=== PATIENT | male | born 1935 | race Caucasian/White ===

== ENCOUNTER 2017-01-28 02:59 | Inpatient (IN) ==
[2017-01-28] MEDS ORDERED: FUROSEMIDE 100 MG/10 ML VIAL IV STA (03:47)
[2017-01-28] MEDS ORDERED: cefTRIAXone 1,000 MG in SODIUM CHLORIDE 0.9% 100 ML IV STA (03:47)
[2017-01-28] MEDS ORDERED: methylPREDNISolone SOD SUC 125 MG/2 ML VIAL IV STA (03:47)
--- NOTE | 2017-01-28 03:56 | Emergency Department Note ---
ICastillo Gwan, am scribing for, and in the presence of, Fletcher Shields MD 03 :54. Alyson Matute Charles R, MD, personally performed the services described in this documentation, ascribed by Jairon Chong in my presence, and it is both accurate and complete 356 . Arrival - Arrival Chief Complaint: Shortness of Breath Stated Complaint: sob ED Nursing Triage Note: Pt ambulatory to triage with c/o sob that started a week ago, but worse tonight. Mode of Arrival: Ambulatory Limitations: No Limitations Source: Patient, Significant other, Old Records Reviewed, RN Notes Reviewed Time Seen by Provider: 01/28/17 03:19 - History of Present Illness HPI Narrative: Patient is a 81 y/o white male who presents to the ED with a c/o SOB with an onset 1 week ago. Pt has a PMHx of COPD and TIA. Patient denies any chest pain, being on any home oxygen or any hx of heart failure. confirmed that pt has a SHx of smoking cigarettes. During exam, stated that pt has also had tingling/numbness in bilateral feet. was then educated on the detriment of smoking cigarettes and how, with the pt's PMHx, this can cause damage to blood vessels and destroy function of lower extremities. Patient did not appear to be in respiratory distress while in ED. Onset (ago): week(s) Consistency: constant Severity: moderate Allergies/Adverse Reactions: Allergies Allergy/AdvReac Type Severity Reaction Status Date / Time No Known Allergies Allergy Unverified 01/28/17 03:14 Home Medications: Home Medications Medication Instructions Recorded Confirmed Type Albuterol Sulfate [Proair HFA] 2 puff INH Q4H PRN 01/28/17 01/28/17 History Digoxin Tab [Lanoxin Tab] 0.125 mg PO DAILY 01/28/17 01/28/17 History Pentoxifylline [TRENtal] 400 mg PO TID 01/28/17 01/28/17 History Simvastatin [Zocor] 40 mg PO DAILY 01/28/17 01/28/17 History Warfarin [Coumadin] 5 mg PO DAILY 01/28/17 01/28/17 History dilTIAZem HCl [Diltiazem HCl] 120 mg PO 01/28/17 History Review of System - Review of System 12 point system: reviewed and no additional remarkable complaints except as stated - Review of System Constitutional: Absent: chills, fever Eyes: Absent: discharge Head/Ears/Nose/Throat: Absent: earache Respiratory: Present: as per HPI, other (shortness of breathe ). Absent: cough Cardiovascular: Absent: chest pain Gastrointestinal: Absent: abdominal pain, nausea, vomiting, diarrhea Genitourinary male: Absent: urgency, dysuria Musculoskeletal: Absent: arm pain, back pain, leg pain, neck pain Medical,Surgical,& Family Hx - Medical History Neurology: History of: TIA - Surgical History Reproductive Surgeries: Surgical HX of;: Prostate Surgery (Prostate CA 2010) - Social History Smoking Status: Current every day smoker Frequency of Alcohol Use: None Type of Drug Use: None Exam Vital Signs: Vital Signs Temperature 97.1 F L 01/28/17 03:20 Pulse Rate 73 01/28/17 03:20 Respiratory Rate 18 01/28/17 04:56 Blood Pressure 114/39 01/28/17 03:20 O2 Sat by Pulse Oximetry 91 L 01/28/17 03:01 - General General appearance: alert, in no apparent distress - Head Head exam: Present: atraumatic, normocephalic - Eye Eye exam: Present: normal appearance, PERRL, EOMI - ENT ENT exam: Present: normal oropharynx, mucous membranes moist, TM's normal bilaterally, normal external ear exam - Chest Chest inspection: Present: symmetric chest wall rise, other (Barrel chest). Absent: tenderness - Respiratory Respiratory exam: Present: rales, wheezes (expiratory wheezing bilaterally), other (When pt has oxygen in place, he becomes asymptomatic) - Cardiovascular Cardiovascular exam: Present: murmur (2/6 systolic injection murmur) - Abdominal Exam Abdominal exam: Present: soft, normal bowel sounds. Absent: distention, tenderness - Rectal Exam Rectal exam: Present: heme (-) stool - Extremities Exam Extremities exam: Present: full ROM, other (+2 edema bilateral LE) - Back Exam Back exam: Present: full ROM. Absent: tenderness - Neurological Exam Neurological exam: Present: alert, oriented X3, CN II-XII intact. Absent: motor sensory deficit - Psychiatric Psychiatric exam: Present: normal affect, normal mood - Skin Skin exam: Present: warm, dry, intact, normal color Course - Consultations Consultation #1: Dr. Fay will admit for Dr. Berry Time: 05:11 Results - Labs CBC & BMP: 01/28/17 03:43 01/28/17 03:43 Lab Results: I have reviewed the patients labs Labs: Laboratory Tests 01/28/17 03:43 WBC 13.9 H RBC 3.17 L Hgb 7.4 L Hct 25.0 L MCV 78.9 L MCH 23 L MCHC 29.6 L RDW 18.7 H Plt Count 229 Neut % (Auto) 77.1 H Lymph % (Auto) 12.4 L Neut # (Auto) 10.7 H [place] # (Auto) 1.3 H Laboratory Tests 01/28/17 01/28/17 01/28/17 03:43 03:43 04:20 INR 5.6 H* PT Patient/Control Mix 66.2 ABG pH 7.454 H ABG pCO2 21.5 L ABG pO2 61.5 L ABG HCO3 17.8 L ABG Total CO2 14.3 L ABG O2 Saturation 91.7 L ABG Base Excess -7.9 L FiO2 28.00 Sodium 138 Potassium 4.8 Chloride 110 H Carbon Dioxide 18 L BUN 28 H Creatinine 1.50 H Glucose 144 H Calcium 8.2 L AST 53 H Troponin I 0.073 H Albumin 3.2 L Albumin/Globulin Ratio 1.0 L Critical Care Time Critical Care Time: Yes Total Critical Care Time: 60 Disposition Clinical Impression: Congestive heart failure, Acute exacerbation of chronic obstructive airways disease, Community acquired pneumonia, Coumadin toxicity, Acute anemia Case discussed with: patient, patient's family Disposition: Still a Patient Condition: Guarded Time of Disposition: 05:12
[2017-01-28] MEDS ORDERED: ALBUTEROL 2.5 MG/3 ML NEB RESP TX SCH (04:00)
[2017-01-28 04:01] LABS: Basophils % 0.1 % (0.0-0.8); Eosinophils # 0.1 10*3/uL (0.0-0.87); Eosinophils % 0.5 % (0.00-10.9); Hemoglobin 7.4 GM/DL (14.0-18.0); Immature Granulocytes % 0.8 %; Immature Granulocytes Absolute 0.11 #; Lymphocytes # 1.7 10*3/uL (1.4-4.0); Lymphocytes % 12.4 % (21.2-54.2); Mean Corpuscular HGB Conc 29.6 GM/DL (32-36); Mean Corpuscular Hemoglobin 23 PG (27-34); Mean Corpuscular Volume 78.9 FL (87-102); Mean Platelet Volume 11.1 FL (9.6-12.0); Monocytes # 1.3 10*3/uL (0.11-0.8); Monocytes % 9.1 % (1.7-12.7); NRBC # 0.02 10*3/uL; Neutrophils # 10.7 10*3/uL (1.4-7.4); Neutrophils % 77.1 % (38.7-73.9); Platelet Count 229 T/CUMM (130-400); Red Blood Count 3.17 MC/CUMM (3.8-5.5); Red Cell Distribution Width 18.7 % (9.3-17.3); White Blood Count 13.9 T/CUMM (4-12)
[2017-01-28] MEDS ORDERED: FUROSEMIDE 40 MG/4 ML VIAL IV STA (04:07)
[2017-01-28] MEDS ORDERED: methylPREDNISolone SOD SUC 125 MG/2 ML VIAL ONE (04:11)
[2017-01-28] MEDS ORDERED: FUROSEMIDE 40 MG/4 ML VIAL ONE (04:11)
[2017-01-28] MEDS ORDERED: cefTRIAXone 1,000 MG VIAL ONE (04:11)
[2017-01-28] MEDS ORDERED: FUROSEMIDE 20 MG/2 ML VIAL ONE (04:11)
[2017-01-28 04:32] LABS: ABG Base Excess -7.9 MMOL/L (-2.5-2.5); ABG HCO3 17.8 MMOL/L (20-26); ABG Oxygen Saturation 91.7 % (95-100); ABG PCO2 21.5 MM HG (35-48); ABG PH 7.454 (7.35-7.45); ABG PO2 61.5 MM HG (80-95); ABG TCO2 14.3 MMOL/L (23-27); Allen Test Positive
[2017-01-28 04:37] LABS: INR 5.6; PT Patient Result 66.2 SECS
[2017-01-28 04:51] LABS: Albumin 3.2 G/DL (3.4-5.0); Bilirubin,Total 0.4 MG/DL (0.2-1.0); Calcium 8.2 MG/DL (8.5-10.1); Magnesium 2.3 MG/DL (1.8-2.4); Osmolality,Calculated 283.7 MOS/KG (273-304); Potassium 4.8 MMOL/L (3.5-5.1); Total Protein 6.4 G/DL (6.4-8.3)
[2017-01-28 04:52] LABS: Troponin I Only 0.073 NG/ML (0.00-0.045)
--- NOTE | 2017-01-28 05:56 | EKG Report ---
Stationary ECG Study [facility] ER Test Date: 01/28/2017 3:19:13 AM Pat Name: DAVID LOWERY Department: Room: 288 Gender: M Erp Project Manager: Boaz : 1935 Requested by: Fletcher Frost Order Number: [id number] Reading MD: PERFECTO BLANC Intervals [place] Rate: 72 P: 999 MS: 0 QRS: 94 QRSD: 86 T: 4 QT: 390 QTc: 415 Interpretive Statements Sinus bradycardia with junctional rhythm PVC MODERATE RIGHT AXIS DEVIATION LEFT VENTRICULAR HYPERTROPHY WITH REPOLARIZATION ABNORMALITY Nonspecific repol abnorm Electronically Signed On 01-30-17 15:36:08 CDT by PERFECTO BLANC [email or web address]
[2017-01-28] MEDS ORDERED: ONDANSETRON 4 MG/2 ML VIAL IV PRN (06:04)
[2017-01-28] MEDS ORDERED: ALBUTEROL/IPRATROPIUM 3 ML NEB RESP TX PRN (06:04)
[2017-01-28] MEDS ORDERED: SODIUM CHLORIDE 0.9% 250 ML IV PRN ×2 (06:04)
[2017-01-28] MEDS ORDERED: ALBUTEROL 2.5 MG/3 ML NEB RESP TX PRN (06:04)
[2017-01-28] MEDS ORDERED: ACETAMINOPHEN 325 MG TABLET PO PRN (06:04)
[2017-01-28] MEDS ORDERED: MORPHINE 2 MG/1 ML SYRINGE IV PRN (06:04)
[2017-01-28] MEDS: SODIUM CHLORIDE 0.9% 1,000 ML IV SCH (06:32)
--- NOTE | 2017-01-28 06:56 | XRay Report ---
Referring Physician: Fletcher Shields Exam: XR chest 1V portable Date: January 28, 2017 at 3:50 AM Reason: Shortness of breath Comparison: None Findings: The cardiac silhouette is enlarged, and there is prominent calcified plaque at the aortic arch. The interstitial markings are diffusely prominent, and there are opacities within the mid and lower lung zones bilaterally. This is concerning for pulmonary edema, but other considerations include pneumonia. There is also nonspecific pleural thickening at the right lung apex. No pneumothorax is identified, but there may be minimal bilateral pleural fluid. No acute osseous process is seen. Impression: 1. Cardiomegaly. 2. The interstitial markings are diffusely prominent, and there are opacities within the mid and lower lung zones bilaterally. This is concerning for pulmonary edema, but other considerations include pneumonia. There is also nonspecific pleural thickening at the right lung apex. Follow-up is recommended to exclude an underlying pulmonary nodule. PROCEDURE INTERPRETED AT [facility] DEPARTMENT OF RADIOLOGY Final Report Signed by: Dr. Dayanna Roth
[2017-01-28] MEDS ORDERED: FUROSEMIDE 20 MG/2 ML VIAL IV ONE (07:16)
--- NOTE | 2017-01-28 08:29 | Family Practice History&Phys ---
Assessment and Plan (1) Dyspnea multifactorial in nature Status: Acute Assessment and plan: Feel this is a combination of anemia, chronic obstructive pulmonary disease, and component of congestive heart failure Current Visit: Yes (2) Acute exacerbation of chronic obstructive airways disease Status: Acute Assessment and plan: We will start on appropriate respiratory medications steroids and other meds as needed Current Visit: Yes (3) Congestive heart failure Status: Acute Assessment and plan: We will treat appropriately and evaluate further Current Visit: Yes (4) Anemia blood loss Status: Acute Assessment and plan: Patient has positive Hemoccult stools with elevated INR. Have ordered transfusions and evaluation. We will hold anticoagulants Current Visit: Yes (5) paroxysmal atrial fibrillation Status: Chronic Assessment and plan: Stable at present Current Visit: Yes (6) History CVA and TIAs Status: Chronic Assessment and plan: Stable on anticoagulants Current Visit: Yes (7) History of prostate cancer Status: Chronic Assessment and plan: Stable at present Current Visit: Yes (8) Coumadin toxicity Status: Acute Assessment and plan: Have held his anticoagulants and will monitor closely Current Visit: Yes (9) Nicotine abuse Status: Acute Current Visit: Yes (10) Chronic anticoagulation Status: Chronic Assessment and plan: Elevated at present. Will modify medications. Current Visit: Yes History of Present Illness Chief complaint: Dyspnea and weakness History of present illness: Mr. Perales is a 81 year old male Patient brought to the emergency room by family members who states that over the last 5 or 6 days she has had progressive dyspnea. Initially he has dyspnea with activity but now with rest. Patient is a lifelong non-smoker with known COPD. He is on chronic anticoagulants for paroxysmal atrial fibrillation and TIAs. Patient was noted to be anemic in the emergency room with hemoglobin 7.4 and hematocrit of 25.0. His INR was elevated at 5.6. Patient states that he has noted dark start colored stools over the last several days. Chest x-ray in emergency room was read as most likely pulmonary edema with possible component of pneumonia. BNP was elevated at 458. Symptoms most likely are multifactorial from anemia, COPD, and component of congestive heart failure. Patient also has a history of paroxysmal atrial fibrillation. Review of history we will admit further evaluation therapy Home Medications Medication Instructions Recorded Confirmed Type Albuterol Sulfate [Proair HFA] 2 puff INH Q4H PRN 01/28/17 01/28/17 History Digoxin Tab [Lanoxin Tab] 0.125 mg PO DAILY 01/28/17 01/28/17 History Pentoxifylline [TRENtal] 400 mg PO TID 01/28/17 01/28/17 History Simvastatin [Zocor] 40 mg PO DAILY 01/28/17 01/28/17 History Warfarin [Coumadin] 5 mg PO DAILY 01/28/17 01/28/17 History dilTIAZem HCl [Diltiazem HCl] 120 mg PO DAILY 01/28/17 01/28/17 History Allergies Allergy/AdvReac Type Severity Reaction Status Date / Time No Known Allergies Allergy Unverified 01/28/17 03:14 Medical,Surgical,& Family Hx - Medical History Cardio: History of: Cardiac Dysrhythmia (history of paroxysmal atrial fibrillation) Neurology: History of: Cerebrovascular Accident, TIA Respiratory: History of: COPD Genitourinary: History of: Prostate Problems - Surgical History Reproductive Surgeries: Surgical HX of;: Prostate Surgery (Prostate CA 2010) - Family History Family History: Reports;: Family Heart Disease, Family Hypertension - Social History Smoking Status: Current every day smoker Frequency of Alcohol Use: None Type of Drug Use: None Marital Status: Lives With:: Spouse Functional capacity: independent ambulation Exam - Constitutional Vitals: Period Temp Pulse Resp BP Sys/Dumas Pulse Ox Last 24 Hr 97 F-97.3 F 73-92 16-24 93-114/39-61 90-100 General appearance: mild distress - Head Head exam: Present: normal inspection - ENT ENT exam: Present: normal exam - Neck Neck exam: Present: normal inspection - Respiratory Respiratory exam: Present: rales, wheezes - Cardiovascular Cardiovascular exam: Present: tachycardia - GI/Abdominal GI/Abdominal exam: Present: normal bowel sounds, soft - Extremities Exam Extremities exam: Present: normal inspection - Back Exam Back exam: Present: normal inspection - Neurological Exam Neurological exam: Present: alert, oriented X3 - Skin Skin exam: Present: normal color Results - Labs CBC & BMP: 01/28/17 03:43 01/28/17 03:43 Quality Measures - VTE Contraindication to Pharmacological VTE Prophylaxis: Already on Theraputic Agent , No Prophylaxis Needed
[2017-01-28] MEDS: DOCUSATE SODIUM 100 MG CAPSULE PO SCH ×2 (08:53→21:38)
[2017-01-28] MEDS: SIMVASTATIN 40 MG TABLET PO SCH (08:53)
[2017-01-28] MEDS: PANTOPRAZOLE 40 MG VIAL IV SCH (08:53)
[2017-01-28] MEDS: PENTOXIFYLLINE 400 MG TABLET PO SCH ×3 (08:53→21:38)
[2017-01-28] MEDS: DILTIAZEM CD 120 MG CAPSULE PO SCH (08:54)
[2017-01-28] MEDS: FUROSEMIDE 40 MG/4 ML VIAL IV SCH ×2 (08:54→15:57)
--- NOTE | 2017-01-28 08:55 | EKG Report ---
Stationary ECG Study [facility] Test Date: 01/28/2017 8:54:37 AM Pat Name: DAVID LOWERY Department: Room: 288 Gender: M Sleep Scientist: CHRISTOPHE : 1935 Requested by: Fletcher Frost Order Number: [id number] Reading MD: PERFECTO BLANC Intervals [place] Rate: 79 P: 999 CO: 0 QRS: 74 QRSD: 92 T: 72 QT: 387 QTc: 421 Interpretive Statements ATRIAL FIBRILLATION WITH VENTRICULAR PREMATURE COMPLEXES ST DEPRESSION, CONSIDER SUBENDOCARDIAL INJURY Electronically Signed On 01-30-17 15:53:41 CDT by PERFECTO BLANC [id number]
[2017-01-28] MEDS: DIGOXIN 0.125 MG TABLET PO SCH (12:14)
[2017-01-28] MEDS: methylPREDNISolone SOD SUC 40 MG/1 ML VIAL IV SCH ×2 (12:14→21:39)
[2017-01-28 17:37] LABS: Hematocrit 31.4 VOL% (42.0-52.0)
[2017-01-28 17:45] LABS: Hemoglobin 9.8 GM/DL (14.0-18.0)
--- NOTE | 2017-01-28 20:08 | Cardiology Consult Note ---
Rasheed Matute Vanessa, RN, am scribing for, and in the presence of, Valdemar Garrido MD 19 :48. Assessment and Plan - Time spent with patient Time spent with patient: Greater than 30 minutes (Due to assessment, planning, documentation, medication review) (1) Anemia blood loss Status: Acute Assessment and plan: 81-year-old male, presenting with anemia, suspected GI bleed, supratherapeutic INR. History of paroxysmal atrial fibrillation, severe COPD, hypertension hyperlipidemia, CVA. -Agree to hold Coumadin for now -Patient got transfused, feels more comfortable now. -He will need GI evaluation. The INR was modestly supratherapeutic, and he seems to had significant GI bleed. -His CHADSVASC score is 6, he will need to be anticoagulated, unless there is an absolute contraindication. -Troponin leak. This is likely due to demand ischemia. Check echo. He will also need ischemic evaluation. -Keep hematocrit above 27, due to demand ischemia. He is hemodynamically stable and the chest pain-free at this time. -Mild peripheral edema. Continue diuresis. Shortness of breath is likely due to underlying COPD. -Keep on telemetry Current Visit: Yes (2) Acute exacerbation of chronic obstructive airways disease Status: Acute Assessment and plan: SEE PLAN OF CARE LISTED BELOW. Current Visit: Yes (3) Dyspnea multifactorial in nature Status: Chronic Assessment and plan: SEE PLAN OF CARE LISTED BELOW. Current Visit: Yes (4) History of COPD Status: Chronic Assessment and plan: SEE PLAN OF CARE LISTED BELOW. Current Visit: Yes (5) History of prostate cancer Status: Chronic Assessment and plan: SEE PLAN OF CARE LISTED BELOW. Current Visit: Yes (6) Nicotine abuse Status: Chronic Assessment and plan: SEE PLAN OF CARE LISTED BELOW. Current Visit: Yes (7) Chronic anticoagulation Status: Chronic Assessment and plan: SEE PLAN OF CARE LISTED BELOW. Current Visit: Yes (8) History CVA and TIAs Status: Chronic Assessment and plan: SEE PLAN OF CARE LISTED BELOW. Current Visit: Yes (9) History of prostate cancer Status: Chronic Assessment and plan: SEE PLAN OF CARE LISTED BELOW. Current Visit: Yes (10) paroxysmal atrial fibrillation Status: Chronic Assessment and plan: SEE PLAN OF CARE LISTED BELOW. Current Visit: Yes History of Present Illness - Data of Consult Patient: known to practice within the last 3 years Consult date: 01/28/17 Requesting Physician: Andi Berry - Consult Narrative Reason for consult: Shortness of breath, atrial fibrillation, CHF History of present illness: PRIMARY FIRE COORDINATOR: NEW TO CARDIOLOGY PCP: DR. BERRY CARDIOLOGY CONSULT NOTE: SHORTNESS OF BREATH, ATRIAL FIB, CHF Mr. Perales is a 81 year old white male who has been followed by Dr. Michael Freitas in the remote past. Past medical history includes paroxysmal atrial fibrillation, carotid artery disease CVA, prostate cancer, COPD, BPH, hypothyroid disease, dyslipidemia. He is chronically anticoagulated with Coumadin. He smokes 3/4 PPD cigarettes. Patient presented to the [facility] ED overnight on January 28 complaining of shortness of breath with increasing severity over the course of 1 week. Patient and his reports that his lower extremities are swollen, and specifically reports that his feet are tingling and numb with swollen toes. He also admitted to dark, tarry stools for the past few days. Lab work in the ER revealed H&H of 7.4 and hematocrit 25.0 with supratherapeutic INR 5.6. Chest x-ray suggestive of pulmonary edema versus pneumonia, and BNP mildly elevated at 458. WBC 13,900. Patient was admitted to telemetry for further evaluation and treatment. Cardiology has been consulted for evaluation also. At this time, we are unable to access old medical records prior to 2014 and [facility] system due to system not working at this time. Patient and his deny knowledge of patient having congestive heart failure in the past. Upon exam and interview, while patient was outside cutting grass on his riding lawnmower approximately 5 days ago, he noticed that he was significantly short of breath. Over the past 5 days, this has worsened in severity, and has been much worse overnight. Patient and his report that patient is "gasping for air" at night. Admits 3+ orthopnea. He is being transfused with 2 units PRBCs this afternoon. He is mildly tachypneic during exam respiratory rate 25. Blood pressure borderline low 95/50. Atrial fibrillation per cardiac monitoring with pulse rate 80s. Labs reviewed as above. Digoxin level noted 0.9. Denies recent chills or fever. No abdominal pain, hematuria, hemoptysis. He has received a total of 60 mg IV Lasix since 4 AM morning minimal response as of yet. CC: Andi Berry, DO - Home Medications and Allergies Home Medications: Home Medications Medication Instructions Recorded Confirmed Type Albuterol Sulfate [Proair HFA] 2 puff INH Q4H PRN 01/28/17 01/28/17 History Digoxin Tab [Lanoxin Tab] 0.125 mg PO DAILY 01/28/17 01/28/17 History Pentoxifylline [TRENtal] 400 mg PO TID 01/28/17 01/28/17 History Simvastatin [Zocor] 40 mg PO DAILY 01/28/17 01/28/17 History Warfarin [Coumadin] 5 mg PO DAILY 01/28/17 01/28/17 History dilTIAZem HCl [Diltiazem HCl] 120 mg PO DAILY 01/28/17 01/28/17 History Allergies/Adverse Reactions: Allergies Allergy/AdvReac Type Severity Reaction Status Date / Time No Known Allergies Allergy Unverified 01/28/17 03:14 12 point system: reviewed and no additional remarkable complaints except as stated - Constitutional Constitutional: Present: as per HPI - EENT Eyes: Present: as per HPI Ears: Present: as per HPI Nose, mouth and throat: Present: as per HPI - Cardiovascular Cardiovascular: Present: as per HPI - Respiratory Respiratory: Present: as per HPI - Gastrointestinal Gastrointestinal: Present: as per HPI - Genitourinary Genitourinary: Present: as per HPI - Musculoskeletal Musculoskeletal: Present: as per HPI - Neurological Neurological: Present: as per HPI - Psychiatric Psychiatric: Present: as per HPI - Endocrine Endocrine: Present: as per HPI - Hematologic/Lymphatic Hematologic/Lymphatic: Present: as per HPI Medical,Surgical,& Family Hx - Medical History Cardio: History of: Cardiac Dysrhythmia (history of paroxysmal atrial fibrillation), Hypertension Neurology: History of: Cerebrovascular Accident, TIA Respiratory: History of: COPD Genitourinary: History of: Prostate Problems - Surgical History Reproductive Surgeries: Surgical HX of;: Prostate Surgery (Prostate CA 2010) - Family History Family History: Reports;: Family Heart Disease, Family Hypertension - Social History Smoking Status: Current every day smoker Frequency of Alcohol Use: None Type of Drug Use: None Physical Examination Vital Signs Temp Pulse Resp BP Pulse Ox 97.1 F L 73 16 114/39 91 L 01/28/17 03:01 01/28/17 03:01 01/28/17 03:01 01/28/17 03:01 01/28/17 03:01 General: Present: Appears Well, No Apparent Distress HEENT: Present: Normocephaly Neck: Present: Supple Neck, No JVD/HJR Cardiac: Present: Regular Rate, Regular Rhythm, Systolic Murmur Lungs: Present: Decreased Breath Sounds Neuro: Present: Grossly Intact Abdomen: Present: Soft. Absent: Distended Skin: Present: Clear Extremities: Present: No Clubbing, No Cyanosis, No Edema, +1 Edema Result/EKG - Labs CBC & BMP: 01/28/17 17:16 01/28/17 03:43 Lab Results: I have reviewed the past 24 hour labs Labs: Laboratory Results - last 24 hr 01/28/17 01/28/17 01/28/17 03:43 03:43 03:43 WBC 13.9 H RBC 3.17 L Hgb 7.4 L Hct 25.0 L MCV 78.9 L MCH 23 L MCHC 29.6 L RDW 18.7 H Plt Count 229 MPV 11.1 Neut % (Auto) 77.1 H Lymph % (Auto) 12.4 L [place] % (Auto) 9.1 Eos % (Auto) 0.5 Baso % (Auto) 0.1 Neut # (Auto) 10.7 H Lymph # (Auto) 1.7 [place] # (Auto) 1.3 H Eos # (Auto) 0.1 Baso # (Auto) 0.0 Immature Gran % 0.8 Nucleated RBC % 0.1 Immature Gran # 0.11 Nucleated RBCs # 0.02 INR 5.6 H* PT Patient/Control Mix 66.2 ABG pH ABG pCO2 ABG pO2 ABG HCO3 ABG Total CO2 ABG O2 Saturation ABG Base Excess FiO2 Sodium 138 Potassium 4.8 Chloride 110 H Carbon Dioxide 18 L Anion Gap 14.8 BUN 28 H Creatinine 1.50 H GFR Calculation 44 BUN/Creatinine Ratio 18.00 Glucose 144 H Calculated Osmolality 283.7 Calcium 8.2 L Magnesium 2.3 Total Bilirubin 0.40 AST 53 H ALT 39 Alkaline Phosphatase 97 Troponin I 0.073 H B-Natriuretic Peptide Total Protein 6.4 Albumin 3.2 L Globulin 3.2 Albumin/Globulin Ratio 1.0 L Digoxin Blood Type Antibody Screen Crossmatch Blood Bank Comment 01/28/17 01/28/17 01/28/17 03:43 03:43 04:20 WBC RBC Hgb Hct MCV MCH MCHC RDW Plt Count MPV Neut % (Auto) Lymph % (Auto) [place] % (Auto) Eos % (Auto) Baso % (Auto) Neut # (Auto) Lymph # (Auto) [place] # (Auto) Eos # (Auto) Baso # (Auto) Immature Gran % Nucleated RBC % Immature Gran # Nucleated RBCs # INR PT Patient/Control Mix ABG pH 7.454 H ABG pCO2 21.5 L ABG pO2 61.5 L ABG HCO3 17.8 L ABG Total CO2 14.3 L ABG O2 Saturation 91.7 L ABG Base Excess -7.9 L FiO2 28.00 Sodium Potassium Chloride Carbon Dioxide Anion Gap BUN Creatinine GFR Calculation BUN/Creatinine Ratio Glucose Calculated Osmolality Calcium Magnesium Total Bilirubin AST ALT Alkaline Phosphatase Troponin I B-Natriuretic Peptide 458 H Total Protein Albumin Globulin Albumin/Globulin Ratio Digoxin 0.90 Blood Type Antibody Screen Crossmatch Blood Bank Comment 01/28/17 01/28/17 01/28/17 05:15 06:04 Unknown WBC RBC Hgb Hct MCV MCH MCHC RDW Plt Count MPV Neut % (Auto) Lymph % (Auto) [place] % (Auto) Eos % (Auto) Baso % (Auto) Neut # (Auto) Lymph # (Auto) [place] # (Auto) Eos # (Auto) Baso # (Auto) Immature Gran % Nucleated RBC % Immature Gran # Nucleated RBCs # INR PT Patient/Control Mix ABG pH ABG pCO2 ABG pO2 ABG HCO3 ABG Total CO2 ABG O2 Saturation ABG Base Excess FiO2 Sodium Potassium Chloride Carbon Dioxide Anion Gap BUN Creatinine GFR Calculation BUN/Creatinine Ratio Glucose Calculated Osmolality Calcium Magnesium Total Bilirubin AST ALT Alkaline Phosphatase Troponin I B-Natriuretic Peptide Total Protein Albumin Globulin Albumin/Globulin Ratio Digoxin Blood Type O POSITIVE Cancelled O POSITIVE Antibody Screen Negative Cancelled Crossmatch See Detail Blood Bank Comment Cancelled - Diagnostic Findings Procedure: Chest x-ray: image reviewed by me, report reviewed by me - EKG EKG results: interpreted by me, no acute changes EKG shows: atrial fibrillation Quality Measures - VTE Contraindication to Pharmacological VTE Prophylaxis: Already on Theraputic Agent , No Prophylaxis Needed Hema Matute Attila, MD, personally performed the services described in this documentation, ascribed by Shanae Iqbal RN in my presence, and it is both accurate and complete .
[2017-01-28 20:11] LABS: Hematocrit 30.7 VOL% (42.0-52.0); Hemoglobin 9.8 GM/DL (14.0-18.0)
[2017-01-29 05:02] LABS: Basophils % 0.1 % (0.0-0.8); Hematocrit 29.2 VOL% (42.0-52.0); Hemoglobin 9.4 GM/DL (14.0-18.0); Immature Granulocytes % 0.9 %; Immature Granulocytes Absolute 0.23 #; Lymphocytes # 0.9 10*3/uL (1.4-4.0); Lymphocytes % 3.4 % (21.2-54.2); Mean Corpuscular HGB Conc 32.2 GM/DL (32-36); Mean Corpuscular Hemoglobin 25 PG (27-34); Mean Corpuscular Volume 78.9 FL (87-102); Monocytes # 0.7 10*3/uL (0.11-0.8); Monocytes % 2.8 % (1.7-12.7); NRBC # 0.04 10*3/uL; Neutrophils # 23.1 10*3/uL (1.4-7.4); Neutrophils % 92.8 % (38.7-73.9); Platelet Count 192 T/CUMM (130-400); Red Cell Distribution Width 18.3 % (9.3-17.3); White Blood Count 24.9 T/CUMM (4-12)
[2017-01-29] MEDS: methylPREDNISolone SOD SUC 40 MG/1 ML VIAL IV SCH ×4 (05:12→21:40)
[2017-01-29 05:30] LABS: INR 4.5
[2017-01-29 05:31] LABS: Acanthocytes Few; Hypochromasia 1+; Lymphocytes 6 % (20-55); Microcytosis 1+; Segmented Neutrophils 91 % (50-85); Total Cells Counted 100
[2017-01-29 05:32] LABS: Ovalocytes Slight; Platelet Estimate Adequate
[2017-01-29 05:36] LABS: Albumin 3.3 G/DL (3.4-5.0); Bilirubin,Total 1.1 MG/DL (0.2-1.0); Calcium 8.1 MG/DL (8.5-10.1); Magnesium 2.2 MG/DL (1.8-2.4); Osmolality,Calculated 283.7 MOS/KG (273-304); Potassium 3.3 MMOL/L (3.5-5.1); Risk Ratio 2.45; Total Protein 6.4 G/DL (6.4-8.3); VLDL CHOLESTEROL 11.2 MG/DL
[2017-01-29] MEDS: cefTRIAXone 1,000 MG in SODIUM CHLORIDE 0.9% 100 ML IV SCH (05:51)
[2017-01-29 06:03] LABS: PT Patient Result 52.6 SECS
[2017-01-29 06:17] LABS: Free T4 (Free Thyroxine) 1.54 NG/DL (0.76-1.46); Thyroid Stimulating Hormone 1.24 uIU/ml (0.358-3.74)
[2017-01-29] MEDS: SODIUM CHLORIDE 0.9% 1,000 ML IV SCH (06:23)
[2017-01-29 07:31] LABS: Amorphous Crystals,Urine Occasional /HPF (Few); Apearance,Urine CLEAR (Clear); Bacteria,Urine Occasional /HPF (Few); Bilirubin,Urine Negative (Negative); Blood, Urine Moderate mg/dL (Negative); Glucose,Urine (UA) Negative (Negative); Ketones,Urine 5 mg/dL (Negative); Mucus,Urine Occasional /LPF (Occasional); Nitrite,Urine Negative (Negative); Protein,Urine Negative; RBC,Urine <1 /HPF (0-4); Squamous Epithelial Cell,Urine Occasional /HPF (0-10); Urine Color Yellow (Yellow); Urine Urobilinogen < 2.0 EU/DL (0.2-1.0); WBC,Urine <1 /HPF (0-6)
--- NOTE | 2017-01-29 08:05 | Family Practice Progress Note ---
Family Practice - PN: Subj Interval history: Patient states he is feeling some better this morning and had no difficulty with his transfusion. His hematocrit is 29% this morning but his white blood count is up to almost 25,000. His repeat chest x-ray is markedly improved from yesterday with reduction in his heart size and bilateral interstitial changes. He denies any chest pain this morning. Patient certainly has anemia and murmur. I am going to order 2 blood cultures empirically. I will let cardiology decide whether or not he needs another echocardiogram. Exam (Progress Note) - Constitutional Vitals: Period Temp Pulse Resp BP Sys/Dumas Pulse Ox Last 24 Hr 96.2 F-99.4 F 74-96 16-25 83-130/41-72 94-100 Exam: Objective a well-developed thin white male in no acute distress. He is awake this morning and drinking his coffee when I saw him early this morning. He denies any chest pain this morning and states his shortness of breath is markedly improved. Cardiovascular: Heart rates regular with a 3 over systolic ejection murmur at left base and apex. Pulmonary: Patient's lungs are clear to auscultation this morning. Abdomen: Abdomen soft and nontender to palpation. Results - Labs CBC & BMP: 01/29/17 04:49 01/29/17 04:49 Lab Results: I have reviewed the past 24 hour labs - Diagnostic Findings Procedure: Chest x-ray: report reviewed by me (Shows marked improvement from his previous study done yesterday.) Assessment and Plan (1) Symptomatic anemia Status: Acute Assessment and plan: 01/29/2017: Patient's hematocrit is 29.2 this morning after transfusion. Current Visit: Yes (2) Congestive heart failure Status: Acute Assessment and plan: 01/29/2017: Patient's chest x-ray is much improved with present therapy. Patient is symptomatically improved as well. Current Visit: Yes Quality Measures - VTE Contraindication to Pharmacological VTE Prophylaxis: Already on Theraputic Agent , No Prophylaxis Needed
[2017-01-29] MEDS: SIMVASTATIN 40 MG TABLET PO SCH (09:15)
[2017-01-29] MEDS: DILTIAZEM CD 120 MG CAPSULE PO SCH (09:15)
[2017-01-29] MEDS: DOCUSATE SODIUM 100 MG CAPSULE PO SCH ×2 (09:16→21:29)
[2017-01-29] MEDS: PENTOXIFYLLINE 400 MG TABLET PO SCH ×3 (09:16→21:28)
[2017-01-29] MEDS: FUROSEMIDE 40 MG/4 ML VIAL IV SCH ×2 (09:16→15:29)
[2017-01-29] MEDS: PANTOPRAZOLE 40 MG VIAL IV SCH (09:16)
--- NOTE | 2017-01-29 09:50 | EKG Report ---
Stationary ECG Study [facility] Test Date: 01/28/2017 6:30:57 PM Pat Name: DAVID LOWERY Department: Room: 288 Gender: M Lab Intern: : [id number] Requested by: Perfecto Garrido Order Number: [id number] Reading MD: PERFECTO GARRIDO Intervals [place] Rate: 94 P: 999 MS: 0 QRS: 61 QRSD: 86 T: 220 QT: 357 QTc: 409 Interpretive Statements ATRIAL FIBRILLATION WITH VENTRICULAR PREMATURE COMPLEXES MARKED ST DEPRESSION, POSSIBLE SUBENDOCARDIAL INJURY OR DIGITALIS EFFECT ABNORMAL QRS-T ANGLE Electronically Signed On 01-30-17 16:38:05 CDT by PERFECTO GARRIDO [email or web address]
[2017-01-29] MEDS: DIGOXIN 0.125 MG TABLET PO SCH (12:47)
--- NOTE | 2017-01-29 13:17 | ECHO Report ---
Sravan Perales Exam Date: 01/29/2017 09:25 Referring Physician: Technologist: Hui Reed Age: 81 Ht (in): 71 Wt (lb): 119 Gender: M Exam Location: [facility] Echo Indications: CHF, Hx. CA, Hx. CVA, SOB, COPD, A fib BP: 93 / 49 HR: 87 Rhythm: Sinus Technical Quality: IMPRESSIONS Normal left ventricular size, without hypertrophy, with normal systolic function. Estimated left ventricular ejection fraction 55%. Biatrial enlargement. Mildly thickened mitral valve, moderate to severe eccentric mitral regurgitation. Aortic valve sclerosis, without stenosis, with mild insufficiency. Moderate pulmonary hypertension. Mild pulmonic valve insufficiency. Pleural effusion. MEASUREMENTS (Male / Female) Normal Values 2D ECHO LV Diastolic Diameter PLAX 4.8 cm 4.2 - 5.9 / 3.9 - 5.3 cm LV Systolic Diameter PLAX 3.3 cm LV Fractional Shortening PLAX 32.4 % IVS Diastolic Thickness 0.8 cm 0.6 - 1.0 / 0.6 - 0.9 cm LVPW Diastolic Thickness 1.0 cm 0.6 - 1.0 / 0.6 - 0.9 cm RV Internal Dim ED PLAX 2.6 cm Aortic Root Diameter 2.5 cm LA Systolic Diameter LX 3.5 cm 3.0 - 4.0 / 2.7 - 3.8 cm DOPPLER TR Peak Velocity 326.0 cm/s TR Peak Gradient 42.5 mmHg FINDINGS Left Ventricle Normal left ventricular size, without hypertrophy, with normal systolic function. Estimated left ventricular ejection fraction 55%. Unable to estimate diastolic function due to arrhythmia. Right Ventricle Normal right ventricular size. Normal systolic function Right Atrium Moderately increased right atrial size. Left Atrium Severely dilated left atrium Mitral Valve Mildly thickened mitral valve, moderate to severe eccentric mitral regurgitation. Aortic Valve Aortic valve sclerosis, without stenosis, with mild insufficiency. Tricuspid Valve Morphologically normal tricuspid valve. Mild tricuspid valve regurgitation. Tricuspid regurgitation velocities suggest a PAP of 53 mmHg. Pulmonic Valve Morphologically normal pulmonic valve. Mild pulmonary valve regurgitation. Pericardium No pericardial effusion. There is pleural effusion. Aorta Normal size aortic root and proximal ascending aorta. Valdemar Garrido (Electronically Signed) Final Date: 29 Jan 2017 13:16
--- NOTE | 2017-01-29 13:23 | Cardiology Progress Note ---
Assessment and Plan (1) Anemia blood loss Status: Acute Assessment and plan: 81-year-old male, presenting with anemia, suspected GI bleed, supratherapeutic INR. History of paroxysmal atrial fibrillation, severe COPD, hypertension hyperlipidemia, CVA. -Agree to hold Coumadin for now -Patient got transfused, feels more comfortable now. -He will need GI evaluation. The INR was only modestly supratherapeutic. He has PAD, carotid stenosis and atrial fibrillation, unless risks are prohibitive , he will need to be on aspirin and Coumadin -Troponin leak. This is likely due to demand ischemia. Normal ejection fraction on echo. He will need ischemic evaluation, if remains stable, this may be pursued, when his comorbidities improve. Continue strict rate control, keep hematocrit above 27. -Start metoprolol 25 mg twice daily, continue statin for suspected CAD -A. fib. Rate better controlled. Continue Cardizem, digoxin -Mild peripheral edema. Continue diuresis. Shortness of breath is likely due to underlying COPD. He also has pleural effusion on the echo. -WBC increased. He is not febrile. No obvious source of infection at this time. -Keep on telemetry -He will need to follow-up with cardiology, his leverman was Dr. Freitas before Current Visit: Yes (2) Acute exacerbation of chronic obstructive airways disease Status: Acute Assessment and plan: SEE PLAN OF CARE LISTED BELOW. Current Visit: Yes (3) Dyspnea multifactorial in nature Status: Chronic Assessment and plan: SEE PLAN OF CARE LISTED BELOW. Current Visit: Yes (4) History of COPD Status: Chronic Assessment and plan: SEE PLAN OF CARE LISTED BELOW. Current Visit: Yes (5) History of prostate cancer Status: Chronic Assessment and plan: SEE PLAN OF CARE LISTED BELOW. Current Visit: Yes (6) Nicotine abuse Status: Chronic Assessment and plan: SEE PLAN OF CARE LISTED BELOW. Current Visit: Yes (7) Chronic anticoagulation Status: Chronic Assessment and plan: SEE PLAN OF CARE LISTED BELOW. Current Visit: Yes (8) History CVA and TIAs Status: Chronic Assessment and plan: SEE PLAN OF CARE LISTED BELOW. Current Visit: Yes (9) History of prostate cancer Status: Chronic Assessment and plan: SEE PLAN OF CARE LISTED BELOW. Current Visit: Yes (10) paroxysmal atrial fibrillation Status: Chronic Assessment and plan: SEE PLAN OF CARE LISTED BELOW. Current Visit: Yes Cardiology - PN: Subj Interval history: He is feeling better. Diuresed fairly. Heart rate better controlled, and atrial fibrillation. Blood pressure normal. Exam (Progress Note) - Constitutional Vitals: Period Temp Pulse Resp BP Sys/Dumas Pulse Ox Last 24 Hr 97.2 F-99.4 F 81-91 16-25 83-130/44-72 92-100 General appearance: normal weight, under weight - Head Head exam: Present: normal inspection, normocephalic - Eye Eye exam: Absent: conjunctival injection Pupils: Absent: dilated - ENT ENT exam: Present: normal external ear exam - Neck Neck exam: Present: normal inspection - Respiratory Respiratory exam: Present: decreased breath sounds. Absent: prolonged expiratory phase, rhonchi, wheezes - Cardiovascular Cardiovascular exam: Present: irregular rhythm, systolic murmur, tachycardia - GI/Abdominal GI/Abdominal exam: Present: normal bowel sounds - Extremities Exam Extremities exam: Present: normal inspection, normal capillary refill, edema (1+ ) - Back Exam Back exam: Present: normal inspection - Neurological Exam Neurological exam: Present: alert, oriented X3 - Psychiatric Psychiatric exam: Present: normal affect, normal mood - Skin Skin exam: Present: normal color, warm, other (Onychomycosis). Absent: cyanosis Result/EKG - Labs CBC & BMP: 01/29/17 04:49 01/29/17 04:49 Lab Results: I have reviewed the past 24 hour labs Labs: Laboratory Results - last 24 hr 01/28/17 01/28/17 01/28/17 06:04 17:16 20:06 WBC RBC Hgb 9.8 L D 9.8 L Hct 31.4 L 30.7 L MCV MCH MCHC RDW Plt Count MPV Neut % (Auto) Lymph % (Auto) [place] % (Auto) Eos % (Auto) Baso % (Auto) Neut # (Auto) Lymph # (Auto) [place] # (Auto) Eos # (Auto) Baso # (Auto) Total Counted Immature Gran % Nucleated RBC % Immature Gran # Segmented Neutrophils Lymphocytes Monocytes Nucleated RBCs # Platelet Estimate Hypochromasia Microcytosis Ovalocytes Acanthocytes (Spur) INR PT Patient/Control Mix Sodium Potassium Chloride Carbon Dioxide Anion Gap BUN Creatinine GFR Calculation BUN/Creatinine Ratio Glucose Calculated Osmolality Calcium Magnesium Total Bilirubin AST ALT Alkaline Phosphatase C-Reactive Protein B-Natriuretic Peptide Total Protein Albumin Globulin Albumin/Globulin Ratio Triglycerides Cholesterol LDL Cholesterol VLDL Cholesterol HDL Cholesterol Heart Disease Risk Ratio Free T4 TSH 3rd Generation Urine Color Urine Appearance Urine pH Ur Specific [place] Urine Protein Urine Glucose (UA) Urine Ketones Urine Blood Urine Nitrate Urine Bilirubin Urine Urobilinogen Urine Leukocytes Urine RBC Urine WBC Ur Squamous Epith Cells Amorphous Crystals Urine Bacteria Urine Mucus Ur Culture Indicated? Digoxin Crossmatch See Detail 01/29/17 01/29/17 01/29/17 04:15 04:41 04:49 WBC 24.9 H D RBC 3.70 L Hgb 9.4 L Hct 29.2 L MCV 78.9 L MCH 25 L MCHC 32.2 RDW 18.3 H Plt Count 192 MPV 11.0 Neut % (Auto) 92.8 H Lymph % (Auto) 3.4 L [place] % (Auto) 2.8 Eos % (Auto) 0.0 Baso % (Auto) 0.1 Neut # (Auto) 23.1 H Lymph # (Auto) 0.9 L [place] # (Auto) 0.7 Eos # (Auto) 0.0 Baso # (Auto) 0.0 Total Counted 100 Immature Gran % 0.9 Nucleated RBC % 0.2 Immature Gran # 0.23 Segmented Neutrophils 91 H Lymphocytes 6 L Monocytes 3 Nucleated RBCs # 0.04 Platelet Estimate Adequate Hypochromasia 1+ Microcytosis 1+ Ovalocytes Slight Acanthocytes (Spur) Few INR PT Patient/Control Mix Sodium Potassium Chloride Carbon Dioxide Anion Gap BUN Creatinine GFR Calculation BUN/Creatinine Ratio Glucose Calculated Osmolality Calcium Magnesium Total Bilirubin AST ALT Alkaline Phosphatase C-Reactive Protein 1.58 H B-Natriuretic Peptide Total Protein Albumin Globulin Albumin/Globulin Ratio Triglycerides Cholesterol LDL Cholesterol VLDL Cholesterol HDL Cholesterol Heart Disease Risk Ratio Free T4 TSH 3rd Generation Urine Color Yellow Urine Appearance Clear Urine pH 5.0 Ur Specific [place] 1.010 Urine Protein Negative Urine Glucose (UA) Negative Urine Ketones 5 Urine Blood Moderate Urine Nitrate Negative Urine Bilirubin Negative Urine Urobilinogen < 2.0 H Urine Leukocytes Negative Urine RBC <1 Urine WBC <1 Ur Squamous Epith Cells Occasional Amorphous Crystals Occasional Urine Bacteria Occasional Urine Mucus Occasional Ur Culture Indicated? Not indicated Digoxin Crossmatch 01/29/17 01/29/17 01/29/17 04:49 04:49 04:49 WBC RBC Hgb Hct MCV MCH MCHC RDW Plt Count MPV Neut % (Auto) Lymph % (Auto) [place] % (Auto) Eos % (Auto) Baso % (Auto) Neut # (Auto) Lymph # (Auto) [place] # (Auto) Eos # (Auto) Baso # (Auto) Total Counted Immature Gran % Nucleated RBC % Immature Gran # Segmented Neutrophils Lymphocytes Monocytes Nucleated RBCs # Platelet Estimate Hypochromasia Microcytosis Ovalocytes Acanthocytes (Spur) INR 4.5 PT Patient/Control Mix 52.6 D Sodium 138 Potassium 3.3 L Chloride 104 Carbon Dioxide 21 Anion Gap 16.3 H BUN 31 H Creatinine 1.60 H GFR Calculation 39 BUN/Creatinine Ratio 19.00 Glucose 138 H Calculated Osmolality 283.7 Calcium 8.1 L Magnesium 2.2 Total Bilirubin 1.10 H AST 53 H ALT 33 Alkaline Phosphatase 85 C-Reactive Protein B-Natriuretic Peptide 1049 H Total Protein 6.4 Albumin 3.3 L Globulin 3.1 Albumin/Globulin Ratio 1.0 L Triglycerides 56 Cholesterol 76 LDL Cholesterol 40.0 VLDL Cholesterol 11.2 HDL Cholesterol 31 L Heart Disease Risk Ratio 2.45 Free T4 TSH 3rd Generation Urine Color Urine Appearance Urine pH Ur Specific [place] Urine Protein Urine Glucose (UA) Urine Ketones Urine Blood Urine Nitrate Urine Bilirubin Urine Urobilinogen Urine Leukocytes Urine RBC Urine WBC Ur Squamous Epith Cells Amorphous Crystals Urine Bacteria Urine Mucus Ur Culture Indicated? Digoxin Crossmatch 01/29/17 01/29/17 04:49 04:49 WBC RBC Hgb Hct MCV MCH MCHC RDW Plt Count MPV Neut % (Auto) Lymph % (Auto) [place] % (Auto) Eos % (Auto) Baso % (Auto) Neut # (Auto) Lymph # (Auto) [place] # (Auto) Eos # (Auto) Baso # (Auto) Total Counted Immature Gran % Nucleated RBC % Immature Gran # Segmented Neutrophils Lymphocytes Monocytes Nucleated RBCs # Platelet Estimate Hypochromasia Microcytosis Ovalocytes Acanthocytes (Spur) INR PT Patient/Control Mix Sodium Potassium Chloride Carbon Dioxide Anion Gap BUN Creatinine GFR Calculation BUN/Creatinine Ratio Glucose Calculated Osmolality Calcium Magnesium Total Bilirubin AST ALT Alkaline Phosphatase C-Reactive Protein B-Natriuretic Peptide Total Protein Albumin Globulin Albumin/Globulin Ratio Triglycerides Cholesterol LDL Cholesterol VLDL Cholesterol HDL Cholesterol Heart Disease Risk Ratio Free T4 1.54 H TSH 3rd Generation 1.240 Urine Color Urine Appearance Urine pH Ur Specific [place] Urine Protein Urine Glucose (UA) Urine Ketones Urine Blood Urine Nitrate Urine Bilirubin Urine Urobilinogen Urine Leukocytes Urine RBC Urine WBC Ur Squamous Epith Cells Amorphous Crystals Urine Bacteria Urine Mucus Ur Culture Indicated? Digoxin 0.90 Crossmatch - EKG EKG results: interpreted by me Quality Measures - VTE Contraindication to Pharmacological VTE Prophylaxis: Already on Theraputic Agent , No Prophylaxis Needed
--- NOTE | 2017-01-29 17:10 | XRay Report ---
History: Shortness of breath Date: 01/29/2017 Study: Chest x-ray PA and lateral Comparison exam: 01/28/2017 The cardiac silhouette is upper normal, though smaller in size than on the comparison study. There is mild prominence of the pulmonary vasculature which is moderately improved. There is no mediastinal mass. There is mild residual hazy pulmonary edema in the mid to lower lungs which is improved. There is mild bilateral pleural effusion. There is no obvious new or worsening process. Osseous structures are unchanged. Impression: Improving congestive heart failure, though some mild residual pulmonary edema and mild bilateral pleural effusion persist PROCEDURE INTERPRETED AT [facility] DEPARTMENT OF RADIOLOGY Final Report Signed by: Dr. Reena Moctezuma
[2017-01-29] MEDS: METOPROLOL TARTRATE 25 MG TABLET PO SCH (21:29)
[2017-01-30 04:12] LABS: Basophils % 0.1 % (0.0-0.8); Hematocrit 31.3 VOL% (42.0-52.0); Hemoglobin 9.8 GM/DL (14.0-18.0); Immature Granulocytes % 1.4 %; Immature Granulocytes Absolute 0.37 #; Lymphocytes # 0.9 10*3/uL (1.4-4.0); Lymphocytes % 3.6 % (21.2-54.2); Mean Corpuscular HGB Conc 31.3 GM/DL (32-36); Mean Corpuscular Hemoglobin 25 PG (27-34); Mean Corpuscular Volume 78.8 FL (87-102); Mean Platelet Volume 10.7 FL (9.6-12.0); Monocytes # 0.5 10*3/uL (0.11-0.8); NRBC # 0.06 10*3/uL; Neutrophils % 92.9 % (38.7-73.9); Platelet Count 183 T/CUMM (130-400); Red Blood Count 3.97 MC/CUMM (3.8-5.5); Red Cell Distribution Width 18.5 % (9.3-17.3); White Blood Count 25.8 T/CUMM (4-12)
[2017-01-30 04:39] LABS: Calcium 7.8 MG/DL (8.5-10.1); Magnesium 2.6 MG/DL (1.8-2.4); Osmolality,Calculated 299.1 MOS/KG (273-304); Potassium 3.6 MMOL/L (3.5-5.1)
[2017-01-30 04:57] LABS: Band Neutrophils 1 % (0-10); Lymphocytes 2 % (20-55); Platelet Estimate Normal; Segmented Neutrophils 95 % (50-85); Total Cells Counted 100
[2017-01-30] MEDS: methylPREDNISolone SOD SUC 40 MG/1 ML VIAL IV SCH ×3 (04:59→21:25)
[2017-01-30] MEDS: cefTRIAXone 1,000 MG in SODIUM CHLORIDE 0.9% 100 ML IV SCH (05:00)
[2017-01-30 05:01] LABS: INR 3.6
[2017-01-30 05:18] LABS: PT Patient Result 41.6 SECS
--- NOTE | 2017-01-30 08:16 | Family Practice Progress Note ---
Family Practice - PN: Subj Interval history: Patient states she is feeling some better this morning and is not had any fever or chills. Patient states his dyspnea has resolved. His hematocrit is remaining stable but he still has prominent leukocytosis. Exam (Progress Note) - Constitutional Vitals: Period Temp Pulse Resp BP Sys/Dumas Pulse Ox Last 24 Hr 97.6 F-98.8 F 64-84 18-20 119-168/53-68 91-98 Exam: Objective a well-developed thin white male in no acute distress. He is awake this morning and drinking his coffee along with his . He denies any chest pain this morning and states his shortness of breath is markedly improved. Cardiovascular: Heart rates regular with a 3 over systolic ejection murmur at left base and apex. Pulmonary: Patient's lungs are clear to auscultation this morning. Abdomen: Abdomen soft and nontender to palpation. Results - Labs CBC & BMP: 01/30/17 03:52 01/30/17 03:52 Lab Results: I have reviewed the past 24 hour labs Assessment and Plan (1) Symptomatic anemia Status: Resolved Assessment and plan: 01/29/2017: Patient's hematocrit is 29.2 this morning after transfusion. Current Visit: Yes (2) Congestive heart failure Status: Resolved Assessment and plan: 01/29/2017: Patient's chest x-ray is much improved with present therapy. Patient is symptomatically improved as well. Current Visit: Yes (3) Community acquired pneumonia Status: Acute Assessment and plan: 01/30/2070, will continue present IV antibiotic therapy. Current Visit: Yes Quality Measures - VTE Contraindication to Pharmacological VTE Prophylaxis: Already on Theraputic Agent , No Prophylaxis Needed
[2017-01-30] MEDS: FUROSEMIDE 40 MG/4 ML VIAL IV SCH ×2 (09:04→15:05)
[2017-01-30] MEDS: SIMVASTATIN 40 MG TABLET PO SCH (09:04)
[2017-01-30] MEDS: DOCUSATE SODIUM 100 MG CAPSULE PO SCH ×2 (09:04→21:26)
[2017-01-30] MEDS: PENTOXIFYLLINE 400 MG TABLET PO SCH ×3 (09:04→21:26)
[2017-01-30] MEDS: PANTOPRAZOLE 40 MG VIAL IV SCH (09:04)
[2017-01-30] MEDS: METOPROLOL TARTRATE 25 MG TABLET PO SCH ×2 (09:06→21:26)
[2017-01-30] MEDS: DILTIAZEM CD 120 MG CAPSULE PO SCH (09:06)
--- NOTE | 2017-01-30 11:36 | Cardiology Progress Note ---
Assessment and Plan (1) Anemia blood loss Status: Acute Assessment and plan: 81-year-old male, presenting with anemia, suspected GI bleed, supratherapeutic INR. History of paroxysmal atrial fibrillation, severe COPD, hypertension hyperlipidemia, CVA. -Agree to hold Coumadin for now. If hematocrit remains stable, without active bleeding, can resume and keep the INR between 2-3. Stool was 1 positive for occult blood -He will need GI evaluation. The INR was only modestly supratherapeutic. He has PAD, carotid stenosis and atrial fibrillation, unless risks are prohibitive , he will need to be on aspirin and Coumadin -Patient got transfused, feels more comfortable now. -Troponin leak. This is likely due to demand ischemia. Normal ejection fraction on echo. He will need ischemic evaluation, if remains stable, this may be pursued, when his comorbidities improve. Continue strict rate control, keep hematocrit above 27. -Cont metoprolol 25 mg twice daily, continue statin for suspected CAD. He was more bradycardic today. Continue to monitor -A. fib. Rate better controlled. Continue Cardizem, digoxin -Mild peripheral edema. Continue diuresis. improved. Shortness of breath is likely due to underlying COPD and susp PNA. WBC still elevated. -He will need to follow-up with cardiology, his plastic extrusion operator was Dr. Freitas before Current Visit: Yes (2) Acute exacerbation of chronic obstructive airways disease Status: Acute Assessment and plan: SEE PLAN OF CARE LISTED BELOW. Current Visit: Yes (3) Dyspnea multifactorial in nature Status: Chronic Assessment and plan: SEE PLAN OF CARE LISTED BELOW. Current Visit: Yes (4) History of COPD Status: Chronic Assessment and plan: SEE PLAN OF CARE LISTED BELOW. Current Visit: Yes (5) History of prostate cancer Status: Chronic Assessment and plan: SEE PLAN OF CARE LISTED BELOW. Current Visit: Yes (6) Nicotine abuse Status: Chronic Assessment and plan: SEE PLAN OF CARE LISTED BELOW. Current Visit: Yes (7) Chronic anticoagulation Status: Chronic Assessment and plan: SEE PLAN OF CARE LISTED BELOW. Current Visit: Yes (8) History CVA and TIAs Status: Chronic Assessment and plan: SEE PLAN OF CARE LISTED BELOW. Current Visit: Yes (9) History of prostate cancer Status: Chronic Assessment and plan: SEE PLAN OF CARE LISTED BELOW. Current Visit: Yes (10) paroxysmal atrial fibrillation Status: Chronic Assessment and plan: SEE PLAN OF CARE LISTED BELOW. Current Visit: Yes Cardiology - PN: Subj Interval history: He is feeling better. INR is still above 3. Stool was test is positive for occult blood. He is not having active hematochezia. Heart rate, blood pressure well controlled. WBC still elevated, he has no fever Exam (Progress Note) - Constitutional Vitals: Period Temp Pulse Resp BP Sys/Dumas Pulse Ox Last 24 Hr 97.6 F-98.8 F 48-84 18-20 114-168/53-65 91-100 General appearance: normal weight, under weight - Head Head exam: Present: normal inspection, normocephalic - Eye Eye exam: Absent: conjunctival injection Pupils: Absent: dilated - ENT ENT exam: Present: normal external ear exam - Neck Neck exam: Present: normal inspection - Respiratory Respiratory exam: Present: clear to auscultation bilaterally - Cardiovascular Cardiovascular exam: Present: irregular rhythm, systolic murmur - GI/Abdominal GI/Abdominal exam: Present: normal bowel sounds - Extremities Exam Extremities exam: Present: normal inspection, normal capillary refill - Back Exam Back exam: Present: normal inspection - Neurological Exam Neurological exam: Present: alert, oriented X3 - Psychiatric Psychiatric exam: Present: normal affect, normal mood - Skin Skin exam: Present: normal color, warm. Absent: cyanosis Result/EKG - Labs CBC & BMP: 01/30/17 03:52 01/30/17 03:52 Lab Results: I have reviewed the past 24 hour labs Labs: Laboratory Results - last 24 hr 01/30/17 01/30/17 01/30/17 03:52 03:52 03:52 WBC 25.8 H RBC 3.97 Hgb 9.8 L Hct 31.3 L MCV 78.8 L MCH 25 L MCHC 31.3 L RDW 18.5 H Plt Count 183 MPV 10.7 Neut % (Auto) 92.9 H Lymph % (Auto) 3.6 L [place] % (Auto) 2.0 Eos % (Auto) 0.0 Baso % (Auto) 0.1 Neut # (Auto) 24.0 H Lymph # (Auto) 0.9 L [place] # (Auto) 0.5 Eos # (Auto) 0.0 Baso # (Auto) 0.0 Total Counted 100 Immature Gran % 1.4 Nucleated RBC % 0.2 Immature Gran # 0.37 Segmented Neutrophils 95 H Band Neutrophils 1 Lymphocytes 2 L Monocytes 2 Nucleated RBCs # 0.06 Platelet Estimate Normal Pappenheimer Bodies Straight Ruling Machine Operator INR 3.6 PT Patient/Control Mix 41.6 D Sodium 142 Potassium 3.6 Chloride 105 Carbon Dioxide 27 Anion Gap 13.6 BUN 52 H D Creatinine 1.60 H GFR Calculation 39 BUN/Creatinine Ratio 32.00 H Glucose 151 H Calculated Osmolality 299.1 Calcium 7.8 L Magnesium 2.6 H - EKG EKG results: interpreted by me Quality Measures - VTE Contraindication to Pharmacological VTE Prophylaxis: Already on Theraputic Agent , No Prophylaxis Needed
[2017-01-30] MEDS: DIGOXIN 0.125 MG TABLET PO SCH (13:37)
[2017-01-31] MEDS ORDERED: POTASSIUM CHLORIDE RIDER 10 MEQ in PREMIX 1 EACH IV ONE (00:55)
[2017-01-31 06:04] LABS: Basophils % 0.1 % (0.0-0.8); Hematocrit 31.5 VOL% (42.0-52.0); Hemoglobin 9.8 GM/DL (14.0-18.0); Immature Granulocytes % 0.7 %; Immature Granulocytes Absolute 0.12 #; Lymphocytes # 0.9 10*3/uL (1.4-4.0); Lymphocytes % 5.1 % (21.2-54.2); Mean Corpuscular HGB Conc 31.1 GM/DL (32-36); Mean Corpuscular Hemoglobin 25 PG (27-34); Mean Corpuscular Volume 78.9 FL (87-102); Mean Platelet Volume 11.1 FL (9.6-12.0); Monocytes # 0.6 10*3/uL (0.11-0.8); Monocytes % 3.1 % (1.7-12.7); NRBC # 0.09 10*3/uL; Neutrophils # 16.8 10*3/uL (1.4-7.4); Platelet Count 168 T/CUMM (130-400); Red Blood Count 3.99 MC/CUMM (3.8-5.5); Red Cell Distribution Width 18.6 % (9.3-17.3); White Blood Count 18.4 T/CUMM (4-12)
[2017-01-31 06:18] LABS: INR 2.2
[2017-01-31] MEDS ORDERED: SODIUM CHLORIDE 0.9% 100 ML IV ONE (06:18)
[2017-01-31] MEDS: cefTRIAXone 1,000 MG in SODIUM CHLORIDE 0.9% 100 ML IV SCH (06:23)
[2017-01-31] MEDS: methylPREDNISolone SOD SUC 40 MG/1 ML VIAL IV SCH ×3 (06:23→20:56)
[2017-01-31 06:35] LABS: Calcium 7.5 MG/DL (8.5-10.1); Magnesium 2.8 MG/DL (1.8-2.4); Potassium 3.2 MMOL/L (3.5-5.1)
[2017-01-31 06:47] LABS: Hypochromasia 1+; Lymphocytes 4 % (20-55); Microcytosis 1+; Platelet Estimate Adequate; Segmented Neutrophils 94 % (50-85); Total Cells Counted 100
[2017-01-31] MEDS: PANTOPRAZOLE 40 MG VIAL IV SCH (09:04)
[2017-01-31] MEDS: FUROSEMIDE 40 MG/4 ML VIAL IV SCH ×2 (09:04→17:06)
[2017-01-31] MEDS: SIMVASTATIN 40 MG TABLET PO SCH (09:05)
[2017-01-31] MEDS: DOCUSATE SODIUM 100 MG CAPSULE PO SCH ×2 (09:05→20:56)
--- NOTE | 2017-01-31 09:05 | Family Practice Progress Note ---
Family Practice - PN: Subj Interval history: Patient states he is feeling better and he has a therapeutic INR this morning. Patient states she is not having any chest pain or shortness of breath this morning. I do note that he had a short run of V. tach on monitor. Cardiology will see him later today. Exam (Progress Note) - Constitutional Vitals: Period Temp Pulse Resp BP Sys/Dumas Pulse Ox Last 24 Hr 97.2 F-99.1 F 48-72 16-20 127-137/48-76 93-100 Exam: Objective a well-developed thin white male in no acute distress. He is awake this morning and drinking his coffee along with his . He states he is breathing much better this morning. Cardiovascular: Heart rates regular with a 3/6 systolic ejection murmur at left base and apex. Pulmonary: Patient's lungs are clear to auscultation this morning. Abdomen: Abdomen soft and nontender to palpation. Results - Labs CBC & BMP: 01/31/17 05:14 01/31/17 05:14 Lab Results: I have reviewed the past 24 hour labs Assessment and Plan (1) Symptomatic anemia Status: Resolved Assessment and plan: 01/29/2017: Patient's hematocrit is 29.2 this morning after transfusion. 01/30/2017: Patient is improved with transfusion 01/31/2017: We will repeat his CBC and CRP. Current Visit: Yes (2) Congestive heart failure Status: Resolved Assessment and plan: 01/29/2017: Patient's chest x-ray is much improved with present therapy. Patient is symptomatically improved as well. 01/30/2017: Patient is breathing much better this morning and repeat chest x-ray yesterday was markedly better 01/31/2017: He is certainly improved. Current Visit: Yes (3) Community acquired pneumonia Status: Acute Assessment and plan: 01/30/2017: will continue present IV antibiotic therapy. 01/31/2017: We will continue present IV antibiotic therapy. Current Visit: Yes Quality Measures - VTE Contraindication to Pharmacological VTE Prophylaxis: Already on Theraputic Agent , No Prophylaxis Needed
[2017-01-31] MEDS: METOPROLOL TARTRATE 25 MG TABLET PO SCH ×2 (09:13→20:56)
[2017-01-31] MEDS: DILTIAZEM CD 120 MG CAPSULE PO SCH (09:13)
[2017-01-31] MEDS ORDERED: POTASSIUM CHLORIDE RIDER 10 MEQ in PREMIX 1 EACH IV PRN (09:48)
[2017-01-31] MEDS: PENTOXIFYLLINE 400 MG TABLET PO SCH ×3 (10:06→20:56)
[2017-01-31 10:07] LABS: Basophils % 0.1 % (0.0-0.8); Hematocrit 35.6 VOL% (42.0-52.0); Hemoglobin 10.8 GM/DL (14.0-18.0); Immature Granulocytes % 0.8 %; Immature Granulocytes Absolute 0.15 #; Lymphocytes # 0.8 10*3/uL (1.4-4.0); Lymphocytes % 4.6 % (21.2-54.2); Mean Corpuscular HGB Conc 30.3 GM/DL (32-36); Mean Corpuscular Hemoglobin 25 PG (27-34); Mean Corpuscular Volume 80.7 FL (87-102); Mean Platelet Volume 11.9 FL (9.6-12.0); Monocytes # 0.5 10*3/uL (0.11-0.8); Monocytes % 2.7 % (1.7-12.7); NRBC # 0.08 10*3/uL; Neutrophils # 16.9 10*3/uL (1.4-7.4); Neutrophils % 91.8 % (38.7-73.9); Platelet Count 196 T/CUMM (130-400); Red Blood Count 4.41 MC/CUMM (3.8-5.5); Red Cell Distribution Width 18.6 % (9.3-17.3); White Blood Count 18.4 T/CUMM (4-12)
[2017-01-31] MEDS: POTASSIUM CHLORIDE 20 MEQ TABLET PO PRN ×3 (10:26→13:50)
[2017-01-31 10:46] LABS: Band Neutrophils 1 % (0-10); Lymphocytes 6 % (20-55); Nucleated Red Blood Cells 1 (0-5); Segmented Neutrophils 90 % (50-85); Total Cells Counted 100
[2017-01-31 10:47] LABS: Hypochromasia 1+; Microcytosis 1+; Polychromasia Slight
[2017-01-31 10:48] LABS: Acanthocytes Few; Platelet Estimate Adequate
--- NOTE | 2017-01-31 13:09 | Cardiology Progress Note ---
<Linda Rodriges - Last Filed: 01/31/17 12:12> Assessment and Plan (1) Anemia blood loss Status: Acute Assessment and plan: See plan of care listed below. Current Visit: Yes (2) Community acquired pneumonia Status: Acute Assessment and plan: See plan of care listed below. Current Visit: Yes (3) Chronic anticoagulation Status: Chronic Assessment and plan: See plan of care listed below. Current Visit: Yes (4) History of COPD Status: Chronic Assessment and plan: See plan of care listed below. Current Visit: Yes (5) History of prostate cancer Status: Chronic Assessment and plan: See plan of care listed below. Current Visit: Yes (6) Nicotine abuse Status: Chronic Assessment and plan: See plan of care listed below. Current Visit: Yes (7) paroxysmal atrial fibrillation Status: Chronic Assessment and plan: See plan of care listed below. Current Visit: Yes (8) Congestive heart failure Status: Acute Assessment and plan: See plan of care listed below. Current Visit: Yes (9) Supratherapeutic INR Status: Resolved Assessment and plan: See plan of care listed below. Current Visit: Yes (10) Hypokalemia Status: Acute Assessment and plan: See plan of care listed below. Current Visit: Yes (11) Nonsustained ventricular tachycardia Status: Resolved Assessment and plan: See plan of care listed below. Current Visit: Yes (12) Positive occult stool blood test Status: Acute Assessment and plan: See plan of care listed below. Current Visit: Yes Cardiology - PN: Subj Interval history: PRIMARY OIL AND GAS LEASE PUMPER: NEW TO CARDIOLOGY PCP: DR. PETERSON SUMMARY : Mr. Perales is a 81 year old white male who has been followed by Dr. Michael Freitas in the remote past. Past medical history includes paroxysmal atrial fibrillation, CVA, prostate cancer, COPD, BPH, hypothyroid disease, dyslipidemia. Denies any prior history of CHF. He is chronically anticoagulated with Coumadin. He smokes 3/4 PPD cigarettes. Patient presented to the [facility] ED January 28 with complaints of shortness of breath with increasing severity over the course of 1 week. Patient and his reports significant orthopnea. He also admitted to dark, tarry stools for the past few days. Lab work in the ER revealed H&H of 7.4 and hematocrit 25.0 with supratherapeutic INR 5.6. Coumadin was put on hold and patient was transfused with 2 units of packed red blood cells. Stool was positive for 1+ occult blood. Chest x-ray suggestive of pulmonary edema versus pneumonia, and BNP 1049. Echocardiogram revealed normal left ventricular size with normal systolic function, ejection fraction 55%. Biatrial enlargement. Moderate to severe MR and moderate pulmonary hypertension. Leukocytosis, patient is afebrile. Currently being treated for community acquired pneumonia. Patient was admitted to telemetry for further evaluation and treatment. Cardiology has been consulted for evaluation also. January 31 Update - Patient was seen and examined on the tele unit. He is sitting up in chair without any acute distress. Currently, requiring 2L of oxygen via nasal cannula. He reports that his breathing has greatly improved after diuresis. He remains in atrial fibrillation with a controlled ventricular response. He has been mildly bradycardic at times with heart rate as low as 49. Nursing staff reports that beta kody, digoxin and diltiazem was held yesterday. 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 White blood cell count remains elevated with a left shift. Blood cultures have been negative thus far. UA unremarkable. H&H is stable at 10.8 and 35.6. No overt bleeding. INR this morning is 2.2. Potassium is mildly low at 3.2, replaced per protocol. Creatinine 1.5. Magnesium 2.8. Vital signs are stable. Patient is currently in atrial fibrillation with heart rates in the 60s. ASSESSMENT/PLAN : 1. PAROXYSMAL ATRIAL FIBRILLATION - Rate controlled. Patient was mildly bradycardic today. Will monitor. Continue Cardizem, digoxin 2. ANEMIA - Agree to hold Coumadin for now. If hematocrit remains stable, without active bleeding, can resume and keep the INR between 2-3. Stool was 1 positive for occult blood. Will consult GI. 3. SUPRATHERAPEURIC INR - Now theraputic at 2.2. Will continue coumadin after patient's gi bleed has been evaluated by GI. 4. CHRONIC ANTICOAGULATION - INR today is stable at 2.2. He has PAD, carotid stenosis and atrial fibrillation, unless risks are prohibitive, he will need to be on aspirin and Coumadin. 5. COMMUNITY ACQUIRED PNEUMONIA - We will continue present IV antibiotic therapy. Management per Attending. 6. CONGESTIVE HEART FAILURE - Improved. Patient has preserved ejection fraction, 55%. This is most likely secondary to patient's severe mitral regurgitation. Will continue to diurese patient. And await further recommendations from Dr. Ann. 7. STOOL POSITIVE FOR OCCULT BLOOD - Will consult GI. Daily CBC. 8. NONSUSTAINED VENTRICULAR TACHYCARDIA - Asymptomatic. Continue beta- blockade. Will monitor patient on telemetry closely and make further adjustments as needed. 9. HYPOKALEMIA - Replacement protocol ordered. 10. COPD - Management per attending. 11. TOBACCO ABUSE - Smoking cessation encouraged. 12. HISTORY OF PROSTATE CANCER - Stable at present. Management per attending. Exam (Progress Note) - Constitutional Vitals: Period Temp Pulse Resp BP Sys/Dumas Pulse Ox Last 24 Hr 97.2 F-99.1 F 49-72 16-18 127-137/48-76 93-100 Exam: General appearance: Pleasant, cooperative, under weight - Head Head exam: Present: normal inspection, normocephalic - Eye Eye exam: Absent: conjunctival injection Pupils: Absent: dilated - ENT ENT exam: Present: normal external ear exam - Neck Neck exam: Present: normal inspection - Respiratory Respiratory exam: Present: clear to auscultation bilaterally - Cardiovascular Cardiovascular exam: Present: irregular rhythm, systolic murmur - GI/Abdominal GI/Abdominal exam: Present: normal bowel sounds - Extremities Exam Extremities exam: Present: normal inspection, normal capillary refill. No edema noted. - Back Exam Back exam: Present: normal inspection - Neurological Exam Neurological exam: Present: alert, oriented X3 - Psychiatric Psychiatric exam: Present: normal affect, normal mood - Skin Skin exam: Present: normal color, warm. Absent: cyanosis Result/EKG - Labs CBC & BMP: 01/31/17 09:41 01/31/17 05:14 Lab Results: I have reviewed the past 24 hour labs Labs: Laboratory Results - last 24 hr 01/31/17 01/31/17 01/31/17 05:11 05:14 05:14 WBC 18.4 H RBC 3.99 Hgb 9.8 L Hct 31.5 L MCV 78.9 L MCH 25 L MCHC 31.1 L RDW 18.6 H Plt Count 168 MPV 11.1 Neut % (Auto) 91.0 H Lymph % (Auto) 5.[address] [place] % (Auto) 3.1 Eos % (Auto) 0.0 Baso % (Auto) 0.1 Neut # (Auto) 16.8 H Lymph # (Auto) 0.[address] [place] # (Auto) 0.6 Eos # (Auto) 0.0 Baso # (Auto) 0.0 Total Counted 100 Immature Gran % 0.7 Nucleated RBC % 0.5 Immature Gran # 0.12 Segmented Neutrophils 94 H Band Neutrophils Lymphocytes 4 L Monocytes 2 Nucleated RBCs Nucleated RBCs # 0.09 Platelet Estimate Adequate Polychromasia Hypochromasia 1+ Microcytosis 1+ Acanthocytes (Spur) INR PT Patient/Control Mix Sodium 143 Potassium 3.2 L Chloride 106 Carbon Dioxide 27 Anion Gap 13.2 BUN 64 H Creatinine 1.50 H GFR Calculation 42 BUN/Creatinine Ratio 42.00 H Glucose 134 H Calculated Osmolality 304.0 Calcium 7.5 L Magnesium 2.8 H C-Reactive Protein 0.59 H 01/31/17 01/31/17 05:14 09:41 WBC 18.4 H RBC 4.41 Hgb 10.8 L Hct 35.6 L MCV 80.7 L MCH 25 L MCHC 30.3 L RDW 18.6 H Plt Count 196 MPV 11.9 Neut % (Auto) 91.8 H Lymph % (Auto) 4.[address] [place] % (Auto) 2.7 Eos % (Auto) 0.0 Baso % (Auto) 0.1 Neut # (Auto) 16.9 H Lymph # (Auto) 0.[address] [place] # (Auto) 0.5 Eos # (Auto) 0.0 Baso # (Auto) 0.0 Total Counted 100 Immature Gran % 0.8 Nucleated RBC % 0.4 Immature Gran # 0.15 Segmented Neutrophils 90 H Band Neutrophils 1 Lymphocytes 6 L Monocytes 3 Nucleated RBCs 1 Nucleated RBCs # 0.08 Platelet Estimate Adequate Polychromasia Slight Hypochromasia 1+ Microcytosis 1+ Acanthocytes (Spur) Few INR 2.2 PT Patient/Control Mix 25.0 D Sodium Potassium Chloride Carbon Dioxide Anion Gap BUN Creatinine GFR Calculation BUN/Creatinine Ratio Glucose Calculated Osmolality Calcium Magnesium C-Reactive Protein Quality Measures - VTE Contraindication to Pharmacological VTE Prophylaxis: Already on Theraputic Agent , No Prophylaxis Needed <Juliet Ann - Last Filed: 01/31/17 19:30> Assessment and Plan (1) Persistent atrial fibrillation Status: Acute Current Visit: Yes (2) History CVA and TIAs Status: Chronic Current Visit: Yes (3) Chronic anticoagulation Status: Chronic Current Visit: Yes (4) Nicotine abuse Status: Chronic Current Visit: Yes (5) Symptomatic anemia Status: Resolved Current Visit: Yes (6) Supratherapeutic INR Status: Resolved Current Visit: Yes (7) Hypokalemia Status: Acute Current Visit: Yes (8) Nonsustained ventricular tachycardia Status: Resolved Assessment and plan: Beta-blockers for now. Current Visit: Yes (9) Positive occult stool blood test Status: Acute Current Visit: Yes Cardiology - PN: Subj Interval history: I saw and examined Mr. Perales. Discussed with him about the findings. He is previously been a patient Dr. Michael Freitas. He had a supratherapeutic INR for A. fib and had a GI blood loss. While him on the monitor here he has had some nonsustained ventricular tachycardia which at this time we will treat with beta- blockers. 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 This has improved. He has no signs or symptoms of bleeding at this time and is requesting discharge soon. His INR is therapeutic today. Exam (Progress Note) - Constitutional Vitals: Period Temp Pulse Resp BP Sys/Dumas Pulse Ox Last 24 Hr 97.4 F-99.1 F 49-73 16-20 127-165/60-78 91-98 Exam: Agree with above. He has some tattoos and some mild ecchymosis in the skin. Result/EKG - Labs CBC & BMP: 01/31/17 09:41 01/31/17 05:14 Labs: Laboratory Results - last 24 hr 01/31/17 01/31/17 01/31/17 05:11 05:14 05:14 WBC 18.4 H RBC 3.99 Hgb 9.8 L Hct 31.5 L MCV 78.9 L MCH 25 L MCHC 31.1 L RDW 18.6 H Plt Count 168 MPV 11.1 Neut % (Auto) 91.0 H Lymph % (Auto) 5.[address] [place] % (Auto) 3.1 Eos % (Auto) 0.0 Baso % (Auto) 0.1 Neut # (Auto) 16.8 H Lymph # (Auto) 0.[address] [place] # (Auto) 0.6 Eos # (Auto) 0.0 Baso # (Auto) 0.0 Total Counted 100 Immature Gran % 0.7 Nucleated RBC % 0.5 Immature Gran # 0.12 Segmented Neutrophils 94 H Band Neutrophils Lymphocytes 4 L Monocytes 2 Nucleated RBCs Nucleated RBCs # 0.09 Platelet Estimate Adequate Polychromasia Hypochromasia 1+ Microcytosis 1+ Acanthocytes (Spur) INR PT Patient/Control Mix Sodium 143 Potassium 3.2 L Chloride 106 Carbon Dioxide 27 Anion Gap 13.2 BUN 64 H Creatinine 1.50 H GFR Calculation 42 BUN/Creatinine Ratio 42.00 H Glucose 134 H Calculated Osmolality 304.0 Calcium 7.5 L Magnesium 2.8 H C-Reactive Protein 0.59 H 01/31/17 01/31/17 05:14 09:41 WBC 18.4 H RBC 4.41 Hgb 10.8 L Hct 35.6 L MCV 80.7 L MCH 25 L MCHC 30.3 L RDW 18.6 H Plt Count 196 MPV 11.9 Neut % (Auto) 91.8 H Lymph % (Auto) 4.[address] [place] % (Auto) 2.7 Eos % (Auto) 0.0 Baso % (Auto) 0.1 Neut # (Auto) 16.9 H Lymph # (Auto) 0.[address] [place] # (Auto) 0.5 Eos # (Auto) 0.0 Baso # (Auto) 0.0 Total Counted 100 Immature Gran % 0.8 Nucleated RBC % 0.4 Immature Gran # 0.15 Segmented Neutrophils 90 H Band Neutrophils 1 Lymphocytes 6 L Monocytes 3 Nucleated RBCs 1 Nucleated RBCs # 0.08 Platelet Estimate Adequate Polychromasia Slight Hypochromasia 1+ Microcytosis 1+ Acanthocytes (Spur) Few INR 2.2 PT Patient/Control Mix 25.0 D Sodium Potassium Chloride Carbon Dioxide Anion Gap BUN Creatinine GFR Calculation BUN/Creatinine Ratio Glucose Calculated Osmolality Calcium Magnesium C-Reactive Protein
[2017-01-31] MEDS: DIGOXIN 0.125 MG TABLET PO SCH (13:48)
[2017-02-01] MEDS: cefTRIAXone 1,000 MG in SODIUM CHLORIDE 0.9% 100 ML IV SCH (05:22)
[2017-02-01] MEDS: methylPREDNISolone SOD SUC 40 MG/1 ML VIAL IV SCH (05:22)
[2017-02-01 05:34] LABS: Basophils % 0.1 % (0.0-0.8); Hematocrit 30.8 VOL% (42.0-52.0); Hemoglobin 9.6 GM/DL (14.0-18.0); Immature Granulocytes % 0.8 %; Immature Granulocytes Absolute 0.13 #; Lymphocytes % 6.3 % (21.2-54.2); Mean Corpuscular HGB Conc 31.2 GM/DL (32-36); Mean Corpuscular Hemoglobin 24 PG (27-34); Mean Corpuscular Volume 78.2 FL (87-102); Mean Platelet Volume 11.7 FL (9.6-12.0); Monocytes # 0.7 10*3/uL (0.11-0.8); Monocytes % 4.6 % (1.7-12.7); NRBC # 0.07 10*3/uL; Neutrophils # 13.8 10*3/uL (1.4-7.4); Neutrophils % 88.2 % (38.7-73.9); Platelet Count 167 T/CUMM (130-400); Red Blood Count 3.94 MC/CUMM (3.8-5.5); Red Cell Distribution Width 18.6 % (9.3-17.3); White Blood Count 15.7 T/CUMM (4-12)
[2017-02-01 05:38] LABS: INR 1.7; PT Patient Result 18.8 SECS
--- NOTE | 2017-02-01 08:09 | Discharge Summary ---
Hospital Course - Hospital Course Hospital Course: History of present illness: Mr. Perales is a 81 year old male Patient brought to the emergency room by family members who states that over the last 5 or 6 days she has had progressive dyspnea. Initially he has dyspnea with activity but now with rest. Patient is a lifelong non-smoker with known COPD. He is on chronic anticoagulants for paroxysmal atrial fibrillation and TIAs. Patient was noted to be anemic in the emergency room with hemoglobin 7.4 and hematocrit of 25.0. His INR was elevated at 5.6. Patient states that he has noted dark start colored stools over the last several days. Chest x-ray in emergency room was read as most likely pulmonary edema with possible component of pneumonia. BNP was elevated at 458. Symptoms most likely are multifactorial from anemia, COPD, and component of congestive heart failure. Patient also has a history of paroxysmal atrial fibrillation. Review of history we will admit further evaluation therapy. HOSPITAL COURSE -patient was admitted hospital lab and x-ray studies obtained. His INR was significantly elevated at 5.6 on admission. He was also noted to be anemic. Patient required transfusion. He was seen in consultation by cardiology who concurred with component of congestive heart failure. She felt to have a diastolic dysfunction. His cardiac echo was normal. Patient was diuresed and was also treated for component of chronic obstructive pulmonary disease. He has had a slow but steady improvement is generally much improved at time of discharge. Will discharge to home care and follow in the clinic. Call or return to emergency room condition worsening problems develop. Diagnosis - Discharge Diagnosis (1) Dyspnea multifactorial in nature Status: Chronic (2) Acute exacerbation of chronic obstructive airways disease Status: Acute (3) Congestive heart failure Status: Acute (4) Anemia blood loss Status: Acute (5) paroxysmal atrial fibrillation Status: Chronic (6) History CVA and TIAs Status: Chronic (7) History of prostate cancer Status: Chronic (8) Coumadin toxicity Status: Acute (9) Nicotine abuse Status: Chronic (10) Chronic anticoagulation Status: Chronic Discharge Plan - Discharge Data Disposition: Disch To Home/Self Care Condition at Discharge: Stable Discharge Diet: advance to your usual diet Activity: resume usual activities as tolerated Hygiene: no restrictions Weight Bearing at Discharge: full weight bearing Driving: no restrictions Contact your physician if you experience:: fever over 101, Shortness of breath - Discharge Medications New Metoprolol Tartrate Tab [Lopressor Tab] 25 mg PO BID tablet Continue Digoxin Tab [Lanoxin Tab] 0.125 mg PO DAILY dilTIAZem HCl [Diltiazem HCl] 120 mg PO DAILY Simvastatin [Zocor] 40 mg PO DAILY Pentoxifylline [TRENtal] 400 mg PO TID Albuterol Sulfate [Proair HFA] 2 puff INH Q4H PRN PRN Reason: Shortness Of Breath/Wheezing Changed Warfarin [Coumadin] 3 mg PO DAILY #30 mg - Follow Up or Referral - Forms/Instructions Exam - Constitutional Vitals: Period Temp Pulse Resp BP Sys/Dumas Pulse Ox Last 24 Hr 97.4 F-99.3 F 60-80 16-22 135-167/61-78 91-100 General appearance: no acute distress - Head Head exam: Present: normal inspection - Eye Pupils: Present: SILVESTRE - ENT ENT exam: Present: normal exam - Respiratory Respiratory exam: Present: clear to auscultation bilaterally - Cardiovascular Cardiovascular exam: Present: irregular rhythm. Absent: regular rate and rhythm - GI/Abdominal GI/Abdominal exam: Present: normal bowel sounds, soft - Extremities Exam Extremities exam: Present: normal inspection - Back Exam Back exam: Present: normal inspection - Neurological Exam Neurological exam: Present: alert, oriented X3 - Psychiatric Psychiatric exam: Present: normal affect - Skin Skin exam: Present: normal color Discharge Results Procedures and tests throughout hospitalization: Pending Orders 01/28/17 03:43 Blood Culture Stat 01/29/17 08:30 Blood Culture Stat 01/29/17 12:50 Occult Blood, Stool Stat 02/02/17 04:00 Prothrombin Time INR IN AM 02/03/17 04:00 Prothrombin Time INR IN AM Labs on day of discharge: Labs from last 24 hours 02/01/17 02/01/17 01/31/17 04:51 04:51 09:41 WBC 15.7 H 18.4 H RBC 3.94 4.41 Hgb 9.6 L 10.8 L Hct 30.8 L 35.6 L MCV 78.2 L 80.7 L MCH 24 L 25 L MCHC 31.2 L 30.3 L RDW 18.6 H 18.6 H Plt Count 167 196 MPV 11.7 11.9 Neut % (Auto) 88.2 H 91.8 H Lymph % (Auto) 6.3 L 4.6 L Glenn % (Auto) 4.6 2.7 Eos % (Auto) 0.0 0.0 Baso % (Auto) 0.1 0.1 Neut # (Auto) 13.8 H 16.9 H Lymph # (Auto) 1.0 L 0.8 L Glenn # (Auto) 0.7 0.5 Eos # (Auto) 0.0 0.0 Baso # (Auto) 0.0 0.0 Total Counted 100 Immature Gran % 0.8 0.8 Nucleated RBC % 0.4 0.4 Immature Gran # 0.13 0.15 Segmented Neutrophils 90 H Band Neutrophils 1 Lymphocytes 6 L Monocytes 3 Nucleated RBCs 1 Nucleated RBCs # 0.07 0.08 Platelet Estimate Adequate Polychromasia Slight Hypochromasia 1+ Microcytosis 1+ Acanthocytes (Spur) Few INR 1.7 PT Patient/Control Mix 18.8 D C-Reactive Protein 01/31/17 05:11 WBC RBC Hgb Hct MCV MCH MCHC RDW Plt Count MPV Neut % (Auto) Lymph % (Auto) Glenn % (Auto) Eos % (Auto) Baso % (Auto) Neut # (Auto) Lymph # (Auto) Glenn # (Auto) Eos # (Auto) Baso # (Auto) Total Counted Immature Gran % Nucleated RBC % Immature Gran # Segmented Neutrophils Band Neutrophils Lymphocytes Monocytes Nucleated RBCs Nucleated RBCs # Platelet Estimate Polychromasia Hypochromasia Microcytosis Acanthocytes (Spur) INR PT Patient/Control Mix C-Reactive Protein 0.59 H Preliminary micro results at discharge 01/28/17 03:43 Blood Culture - Preliminary Blood No growth at 3 days 01/28/17 03:43 Blood Culture - Preliminary Blood No growth at 3 days 01/29/17 08:30 Blood Culture - Preliminary Blood No growth at 1 day 01/29/17 08:30 Blood Culture - Preliminary Blood No growth at 1 day DS: Provider Date of admission: 01/28/17 05:13 Primary care physician: . No PCP Attending physician on admission: Andi Berry DO Consults: 01/28/17 06:04 Consult to Case Mgmt/Social Srvs [CONS] Routine Reason for Case Mgmt/Social Srvs: Discharge Planning 01/28/17 07:38 Consult to Physician [CONS] Routine Comment: a-fib,sob,chf Consulting Provider: Cardiology - [facility] Consult to Specialist Group: Cardiology When should Consulting Provider be notified: Now Person Notified: LUIS Date Notified: 01/28/17 Time Notified: 10:20 01/28/17 10:11 Consult to Physician [CONS] Routine Comment: Consulting Provider: 01/31/17 12:09 Consult to Physician [CONS] Routine Comment: Positive Occult stool Consulting Provider: Consult to Specialist Group: Gastroenterology When should Consulting Provider be notified: In am Discharging clinician: Andi Berry, DO
[2017-02-01] MEDS ORDERED: methylPREDNISolone 4 MG TABLET PO SCH ×2 (08:30)
[2017-02-01 08:37] VITALS: BP 147/61
[2017-02-01] MEDS: FUROSEMIDE 40 MG/4 ML VIAL IV SCH (09:34)
[2017-02-01] MEDS: PANTOPRAZOLE 40 MG VIAL IV SCH (09:34)
[2017-02-01] MEDS: DOCUSATE SODIUM 100 MG CAPSULE PO SCH (09:35)
[2017-02-01] MEDS: METOPROLOL TARTRATE 25 MG TABLET PO SCH (09:35)
[2017-02-01] MEDS: SIMVASTATIN 40 MG TABLET PO SCH (09:35)
[2017-02-01] MEDS: DILTIAZEM CD 120 MG CAPSULE PO SCH (09:35)
[2017-02-01] MEDS: PENTOXIFYLLINE 400 MG TABLET PO SCH (09:39)
[2017-02-01 09:43] LABS: Calcium 7.7 MG/DL (8.5-10.1); Magnesium 2.8 MG/DL (1.8-2.4); Osmolality,Calculated 303.8 MOS/KG (273-304); Potassium 3.8 MMOL/L (3.5-5.1)
== END 2017-02-01 11:37 | disposition home or self-care (01) | DRG 291 ==
LOC: N.ED 02:59 → N.EDINP 05:13 → N.TELEN 05:26
PROVIDERS: ADMIT Family Medicine; ATTEND Family Medicine

== ENCOUNTER 2017-12-30 09:00 | Inpatient (IN) ==
[2017-12-30 10:02] LABS: Basophils % 0.2 % (0.0-0.8); Eosinophils # 0.4 10*3/uL (0.0-0.87); Eosinophils % 2.3 % (0.00-10.9); Hematocrit 41.4 VOL% (42.0-52.0); Hemoglobin 13.2 GM/DL (14.0-18.0); Immature Granulocytes % 0.4 %; Immature Granulocytes Absolute 0.07 #; Lymphocytes # 3.4 10*3/uL (1.4-4.0); Lymphocytes % 20.9 % (21.2-54.2); Mean Corpuscular HGB Conc 31.9 GM/DL (32-36); Mean Corpuscular Hemoglobin 29 PG (27-34); Mean Corpuscular Volume 90.4 FL (87-102); Mean Platelet Volume 11.4 FL (9.6-12.0); Monocytes # 1.5 10*3/uL (0.11-0.8); Neutrophils # 10.9 10*3/uL (1.4-7.4); Neutrophils % 67.2 % (38.7-73.9); Platelet Count 183 T/CUMM (130-400); Red Blood Count 4.58 MC/CUMM (3.8-5.5); White Blood Count 16.3 T/CUMM (4-12)
[2017-12-30 10:22] LABS: INR 2.8
[2017-12-30 10:24] LABS: PT Patient Result 28.6 SECS
[2017-12-30 10:29] LABS: Alanine Aminotransferase 26 U/L (16-61); Albumin 3.6 G/DL (3.4-5.0); Alkaline Phosphatase 82 U/L (45-117); Aspartate Amino Transferase 27 U/L (0-37); Blood Urea Nitrogen 24 MG/DL (7-18); Calcium 8.2 MG/DL (8.5-10.1); Glucose 136 MG/DL (74-106); Osmolality,Calculated 284.4 MOS/KG (273-304); Potassium 5.1 MMOL/L (3.5-5.1); Sodium 140 MMOL/L (136-145); Total Protein 7.5 G/DL (6.4-8.3); Troponin I Only < 0.015 NG/ML (0.00-0.045)
[2017-12-31 04:04] LABS: Basophils % 0.3 % (0.0-0.8); Eosinophils % 0.1 % (0.00-10.9); Hematocrit 33.8 VOL% (42.0-52.0); Hemoglobin 10.8 GM/DL (14.0-18.0); Immature Granulocytes % 0.5 %; Immature Granulocytes Absolute 0.08 #; Lymphocytes # 2.3 10*3/uL (1.4-4.0); Lymphocytes % 15.7 % (21.2-54.2); Mean Corpuscular Hemoglobin 28 PG (27-34); Mean Corpuscular Volume 86.9 FL (87-102); Mean Platelet Volume 12.2 FL (9.6-12.0); Monocytes # 1.3 10*3/uL (0.11-0.8); Monocytes % 8.7 % (1.7-12.7); Neutrophils # 11.1 10*3/uL (1.4-7.4); Neutrophils % 74.7 % (38.7-73.9); Platelet Count 137 T/CUMM (130-400); Red Blood Count 3.89 MC/CUMM (3.8-5.5); Red Cell Distribution Width 17.4 % (9.3-17.3); White Blood Count 14.8 T/CUMM (4-12)
[2017-12-31 04:31] LABS: INR 3.9
[2017-12-31 04:42] LABS: PT Patient Result 39.4 SECS
[2017-12-31 19:06] LABS: Apearance,Urine Clear (Clear); Bilirubin,Urine Negative (Negative); Blood, Urine Negative (Negative); Glucose,Urine (UA) Negative (Negative); Ketones,Urine Negative (Negative); Nitrite,Urine Negative (Negative); Protein,Urine Negative; Urine Color Yellow (Yellow); Urine Urobilinogen 0.2 EU/DL (0.2-1.0)
[2018-01-01 05:44] LABS: INR 3.9
[2018-01-01 05:45] LABS: PT Patient Result 39.1 SECS
[2018-01-02 06:06] LABS: Basophils % 0.2 % (0.0-0.8); Eosinophils # 0.1 10*3/uL (0.0-0.87); Eosinophils % 1.2 % (0.00-10.9); Hematocrit 35.9 VOL% (42.0-52.0); Hemoglobin 11.7 GM/DL (14.0-18.0); Immature Granulocytes % 0.2 %; Immature Granulocytes Absolute 0.02 #; Lymphocytes # 1.8 10*3/uL (1.4-4.0); Lymphocytes % 19.7 % (21.2-54.2); Mean Corpuscular HGB Conc 32.6 GM/DL (32-36); Mean Corpuscular Hemoglobin 28 PG (27-34); Mean Corpuscular Volume 85.5 FL (87-102); Mean Platelet Volume 12.2 FL (9.6-12.0); Monocytes # 1.1 10*3/uL (0.11-0.8); Monocytes % 11.9 % (1.7-12.7); Neutrophils # 6.2 10*3/uL (1.4-7.4); Neutrophils % 66.8 % (38.7-73.9); Platelet Count 144 T/CUMM (130-400); White Blood Count 9.3 T/CUMM (4-12)
[2018-01-02 06:32] LABS: INR 3.4
[2018-01-02 06:40] LABS: Osmolality,Calculated 289.7 MOS/KG (273-304); Potassium 3.2 MMOL/L (3.5-5.1)
[2018-01-02 06:49] LABS: PT Patient Result 34.7 SECS
[2018-01-03 07:12] LABS: Basophils % 0.1 % (0.0-0.8); Hematocrit 31.8 VOL% (42.0-52.0); Hemoglobin 10.2 GM/DL (14.0-18.0); Immature Granulocytes % 0.3 %; Immature Granulocytes Absolute 0.04 #; Lymphocytes # 1.3 10*3/uL (1.4-4.0); Lymphocytes % 10.8 % (21.2-54.2); Mean Corpuscular HGB Conc 32.1 GM/DL (32-36); Mean Corpuscular Hemoglobin 28 PG (27-34); Mean Corpuscular Volume 86.2 FL (87-102); Mean Platelet Volume 12.2 FL (9.6-12.0); Monocytes # 0.3 10*3/uL (0.11-0.8); Monocytes % 2.5 % (1.7-12.7); Neutrophils # 10.2 10*3/uL (1.4-7.4); Neutrophils % 86.3 % (38.7-73.9); Platelet Count 157 T/CUMM (130-400); Red Blood Count 3.69 MC/CUMM (3.8-5.5); Red Cell Distribution Width 16.9 % (9.3-17.3); White Blood Count 11.8 T/CUMM (4-12)
[2018-01-03 07:23] LABS: INR 3.5
[2018-01-03 07:26] LABS: PT Patient Result 35.4 SECS
[2018-01-03 07:35] LABS: Calcium 8.5 MG/DL (8.5-10.1); Osmolality,Calculated 301.8 MOS/KG (273-304); Potassium 4.1 MMOL/L (3.5-5.1)
[2018-01-03 07:42] LABS: Alanine Aminotransferase 24 U/L (16-61); Alkaline Phosphatase 67 U/L (45-117); Aspartate Amino Transferase 22 U/L (0-37); Bilirubin,Total < 0.39 MG/DL (0.2-1.0); Blood Urea Nitrogen 83 MG/DL (7-18); Calcium 8.5 MG/DL (8.5-10.1); Glucose 153 MG/DL (74-106); Osmolality,Calculated 300.8 MOS/KG (273-304); Potassium 4.1 MMOL/L (3.5-5.1); Sodium 137 MMOL/L (136-145); Total Protein 6.6 G/DL (6.4-8.3)
[2018-01-04 06:23] LABS: Basophils % 0.1 % (0.0-0.8); Hematocrit 27.5 VOL% (42.0-52.0); Immature Granulocytes % 0.5 %; Lymphocytes # 1.5 10*3/uL (1.4-4.0); Lymphocytes % 8.1 % (21.2-54.2); Mean Corpuscular HGB Conc 32.7 GM/DL (32-36); Mean Corpuscular Hemoglobin 28 PG (27-34); Mean Corpuscular Volume 84.9 FL (87-102); Mean Platelet Volume 12.1 FL (9.6-12.0); Monocytes # 0.5 10*3/uL (0.11-0.8); Monocytes % 2.8 % (1.7-12.7); Neutrophils # 16.9 10*3/uL (1.4-7.4); Neutrophils % 88.5 % (38.7-73.9); Platelet Count 150 T/CUMM (130-400); Red Blood Count 3.24 MC/CUMM (3.8-5.5); Red Cell Distribution Width 16.9 % (9.3-17.3); White Blood Count 19.1 T/CUMM (4-12)
[2018-01-04 06:33] LABS: INR 2.9
[2018-01-04 06:37] LABS: Calcium 8.1 MG/DL (8.5-10.1); Osmolality,Calculated 310.7 MOS/KG (273-304); PT Patient Result 29.9 SECS; Potassium 3.9 MMOL/L (3.5-5.1)
[2018-01-05 05:54] LABS: Basophils % 0.1 % (0.0-0.8); Hematocrit 25.8 VOL% (42.0-52.0); Hemoglobin 8.3 GM/DL (14.0-18.0); Immature Granulocytes % 0.8 %; Immature Granulocytes Absolute 0.14 #; Lymphocytes # 1.5 10*3/uL (1.4-4.0); Lymphocytes % 8.5 % (21.2-54.2); Mean Corpuscular HGB Conc 32.2 GM/DL (32-36); Mean Corpuscular Hemoglobin 28 PG (27-34); Mean Corpuscular Volume 86.6 FL (87-102); Mean Platelet Volume 12.2 FL (9.6-12.0); Monocytes # 0.9 10*3/uL (0.11-0.8); Monocytes % 5.3 % (1.7-12.7); Neutrophils % 85.3 % (38.7-73.9); Platelet Count 156 T/CUMM (130-400); Red Blood Count 2.98 MC/CUMM (3.8-5.5); Red Cell Distribution Width 16.8 % (9.3-17.3); White Blood Count 17.6 T/CUMM (4-12)
[2018-01-05 05:55] LABS: INR 2.2
[2018-01-05 06:02] LABS: PT Patient Result 22.3 SECS
[2018-01-05 06:23] LABS: Calcium 7.9 MG/DL (8.5-10.1); Osmolality,Calculated 315.1 MOS/KG (273-304)
[2018-01-05 06:27] LABS: Albumin 2.8 G/DL (3.4-5.0); Bilirubin,Total 0.4 MG/DL (0.2-1.0); Osmolality,Calculated 312.3 MOS/KG (273-304); Potassium 3.9 MMOL/L (3.5-5.1); Total Protein 5.9 G/DL (6.4-8.3)
[2018-01-06 05:46] LABS: Basophils % 0.1 % (0.0-0.8); Hematocrit 26.3 VOL% (42.0-52.0); Hemoglobin 8.2 GM/DL (14.0-18.0); Immature Granulocytes % 1.5 %; Immature Granulocytes Absolute 0.22 #; Lymphocytes # 1.8 10*3/uL (1.4-4.0); Lymphocytes % 12.1 % (21.2-54.2); Mean Corpuscular HGB Conc 31.2 GM/DL (32-36); Mean Corpuscular Hemoglobin 28 PG (27-34); Mean Corpuscular Volume 88.6 FL (87-102); Mean Platelet Volume 11.6 FL (9.6-12.0); Monocytes % 6.4 % (1.7-12.7); Neutrophils % 79.9 % (38.7-73.9); Platelet Count 151 T/CUMM (130-400); Red Blood Count 2.97 MC/CUMM (3.8-5.5); Red Cell Distribution Width 17.2 % (9.3-17.3)
[2018-01-06 05:52] LABS: INR 1.6; PT Patient Result 16.6 SECS
[2018-01-06 06:12] LABS: Osmolality,Calculated 309.8 MOS/KG (273-304); Potassium 4.2 MMOL/L (3.5-5.1)
[2018-01-07 05:50] LABS: INR 1.4; PT Patient Result 14.6 SECS
[2018-01-08 07:11] LABS: INR 1.2; PT Patient Result 12.6 SECS
[2018-01-09 07:02] LABS: Basophils % 0.1 % (0.0-0.8); Hematocrit 28.3 VOL% (42.0-52.0); Immature Granulocytes % 1.1 %; Immature Granulocytes Absolute 0.17 #; Lymphocytes # 2.4 10*3/uL (1.4-4.0); Lymphocytes % 15.2 % (21.2-54.2); Mean Corpuscular HGB Conc 31.8 GM/DL (32-36); Mean Corpuscular Hemoglobin 28 PG (27-34); Mean Corpuscular Volume 88.4 FL (87-102); Mean Platelet Volume 11.5 FL (9.6-12.0); Monocytes # 0.9 10*3/uL (0.11-0.8); Monocytes % 5.8 % (1.7-12.7); NRBC # 0.03 10*3/uL; Neutrophils # 12.2 10*3/uL (1.4-7.4); Neutrophils % 77.8 % (38.7-73.9); Platelet Count 213 T/CUMM (130-400); White Blood Count 15.7 T/CUMM (4-12)
[2018-01-09 07:05] LABS: INR 1.1; PT Patient Result 11.8 SECS
[2018-01-09 07:22] LABS: Calcium 8.2 MG/DL (8.5-10.1); Osmolality,Calculated 296.8 MOS/KG (273-304); Potassium 4.7 MMOL/L (3.5-5.1)
[2018-01-10 04:59] LABS: Basophils % 0.1 % (0.0-0.8); Eosinophils % 0.1 % (0.00-10.9); Hematocrit 27.9 VOL% (42.0-52.0); Hemoglobin 8.8 GM/DL (14.0-18.0); Immature Granulocytes Absolute 0.15 #; Lymphocytes # 1.9 10*3/uL (1.4-4.0); Lymphocytes % 12.6 % (21.2-54.2); Mean Corpuscular HGB Conc 31.5 GM/DL (32-36); Mean Corpuscular Hemoglobin 28 PG (27-34); Mean Corpuscular Volume 88.9 FL (87-102); Mean Platelet Volume 11.7 FL (9.6-12.0); Monocytes # 0.7 10*3/uL (0.11-0.8); NRBC # 0.02 10*3/uL; Neutrophils % 81.2 % (38.7-73.9); Platelet Count 196 T/CUMM (130-400); Red Blood Count 3.14 MC/CUMM (3.8-5.5); Red Cell Distribution Width 17.9 % (9.3-17.3); White Blood Count 14.7 T/CUMM (4-12)
[2018-01-10 05:31] LABS: Calcium 7.8 MG/DL (8.5-10.1); Osmolality,Calculated 294.8 MOS/KG (273-304); Potassium 4.5 MMOL/L (3.5-5.1)
[2018-01-11 06:21] LABS: Basophils % 0.1 % (0.0-0.8); Hematocrit 27.4 VOL% (42.0-52.0); Hemoglobin 8.9 GM/DL (14.0-18.0); Immature Granulocytes % 0.6 %; Lymphocytes # 1.8 10*3/uL (1.4-4.0); Lymphocytes % 11.4 % (21.2-54.2); Mean Corpuscular HGB Conc 32.5 GM/DL (32-36); Mean Corpuscular Hemoglobin 29 PG (27-34); Mean Corpuscular Volume 88.4 FL (87-102); Mean Platelet Volume 11.4 FL (9.6-12.0); Monocytes # 0.7 10*3/uL (0.11-0.8); Monocytes % 4.5 % (1.7-12.7); NRBC # 0.02 10*3/uL; Neutrophils % 83.4 % (38.7-73.9); Platelet Count 189 T/CUMM (130-400); Red Cell Distribution Width 17.8 % (9.3-17.3); White Blood Count 15.6 T/CUMM (4-12)
[2018-01-11 06:57] LABS: Albumin 2.8 G/DL (3.4-5.0); Bilirubin,Total 0.7 MG/DL (0.2-1.0); Calcium 7.9 MG/DL (8.5-10.1); Potassium 4.4 MMOL/L (3.5-5.1); Total Protein 5.6 G/DL (6.4-8.3)
[2018-01-12 04:59] LABS: Basophils % 0.1 % (0.0-0.8); Hematocrit 27.6 VOL% (42.0-52.0); Hemoglobin 8.7 GM/DL (14.0-18.0); Immature Granulocytes % 0.7 %; Immature Granulocytes Absolute 0.11 #; Lymphocytes # 1.9 10*3/uL (1.4-4.0); Lymphocytes % 11.9 % (21.2-54.2); Mean Corpuscular HGB Conc 31.5 GM/DL (32-36); Mean Corpuscular Hemoglobin 29 PG (27-34); Mean Corpuscular Volume 90.8 FL (87-102); Mean Platelet Volume 11.5 FL (9.6-12.0); Monocytes # 0.8 10*3/uL (0.11-0.8); Monocytes % 4.9 % (1.7-12.7); Neutrophils # 13.1 10*3/uL (1.4-7.4); Neutrophils % 82.4 % (38.7-73.9); Platelet Count 190 T/CUMM (130-400); Red Blood Count 3.04 MC/CUMM (3.8-5.5); Red Cell Distribution Width 17.9 % (9.3-17.3); White Blood Count 15.9 T/CUMM (4-12)
[2018-01-12 15:37] LABS: Hematocrit 24.7 VOL% (42.0-52.0); Hemoglobin 7.6 GM/DL (14.0-18.0)
[2018-01-12 16:12] LABS: Calcium 7.5 MG/DL (8.5-10.1); Osmolality,Calculated 286.4 MOS/KG (273-304); Potassium 4.7 MMOL/L (3.5-5.1)
[2018-01-13 07:19] LABS: Basophils % 0.1 % (0.0-0.8); Eosinophils % 0.1 % (0.00-10.9); Hematocrit 34.6 VOL% (42.0-52.0); Hematocrit 34.9 VOL% (42.0-52.0); Hemoglobin 10.9 GM/DL (14.0-18.0); Immature Granulocytes % 0.5 %; Immature Granulocytes Absolute 0.08 #; Lymphocytes # 1.8 10*3/uL (1.4-4.0); Lymphocytes % 12.1 % (21.2-54.2); Mean Corpuscular HGB Conc 31.2 GM/DL (32-36); Mean Corpuscular Hemoglobin 27 PG (27-34); Monocytes % 6.6 % (1.7-12.7); Neutrophils # 12.2 10*3/uL (1.4-7.4); Neutrophils % 80.6 % (38.7-73.9); Platelet Count 162 T/CUMM (130-400); Red Blood Count 4.06 MC/CUMM (3.8-5.5); Red Cell Distribution Width 20.1 % (9.3-17.3); White Blood Count 15.1 T/CUMM (4-12)
[2018-01-13 08:01] LABS: Calcium 7.9 MG/DL (8.5-10.1); Osmolality,Calculated 285.4 MOS/KG (273-304); Potassium 4.8 MMOL/L (3.5-5.1); Total Protein 5.6 G/DL (6.4-8.3)
[2018-01-14 03:52] LABS: Hematocrit 31.4 VOL% (42.0-52.0); Hemoglobin 10.3 GM/DL (14.0-18.0)
[2018-01-14 03:57] LABS: Basophils % 0.1 % (0.0-0.8); Hematocrit 30.7 VOL% (42.0-52.0); Hemoglobin 10.1 GM/DL (14.0-18.0); Immature Granulocytes % 0.7 %; Immature Granulocytes Absolute 0.11 #; Lymphocytes # 1.2 10*3/uL (1.4-4.0); Lymphocytes % 7.1 % (21.2-54.2); Mean Corpuscular HGB Conc 32.9 GM/DL (32-36); Mean Corpuscular Hemoglobin 27 PG (27-34); Mean Corpuscular Volume 83.4 FL (87-102); Mean Platelet Volume 11.3 FL (9.6-12.0); Monocytes % 5.8 % (1.7-12.7); Neutrophils # 14.1 10*3/uL (1.4-7.4); Neutrophils % 86.3 % (38.7-73.9); Platelet Count 147 T/CUMM (130-400); Red Blood Count 3.68 MC/CUMM (3.8-5.5); Red Cell Distribution Width 20.2 % (9.3-17.3); White Blood Count 16.3 T/CUMM (4-12)
[2018-01-14 04:15] LABS: Calcium 7.8 MG/DL (8.5-10.1); Osmolality,Calculated 292.1 MOS/KG (273-304); Potassium 4.4 MMOL/L (3.5-5.1)
[2018-01-14 04:41] LABS: INR 1.1; PT Patient Result 11.7 SECS
[2018-01-15 05:39] LABS: INR 1.3; PT Patient Result 13.5 SECS
[2018-01-16 06:09] LABS: INR 1.4; PT Patient Result 14.7 SECS
[2018-01-16 11:34] VITALS: BP 154/64
== END 2018-01-16 13:45 | disposition home or self-care (01) | DRG 981 ==
LOC: N.ED 09:00 → N.EDINP 11:47 → N.2E 13:12
PROVIDERS: ADMIT Family Medicine; ATTEND Family Medicine

== ENCOUNTER 2018-07-07 11:16 | Inpatient (IN) ==
[2018-07-07] MEDS ORDERED: ALBUTEROL/IPRATROPIUM 3 ML NEB RESP TX STA (13:01)
[2018-07-07] MEDS ORDERED: FUROSEMIDE 100 MG/10 ML VIAL IV STA (13:01)
[2018-07-07 13:32] LABS: Basophils % 0.2 % (0.0-0.8); Eosinophils # 0.1 10*3/uL (0.0-0.87); Eosinophils % 0.5 % (0.00-10.9); Immature Granulocytes % 0.4 %; Immature Granulocytes Absolute 0.04 #; Lymphocytes # 2.1 10*3/uL (1.4-4.0); Lymphocytes % 23.1 % (21.2-54.2); Mean Corpuscular HGB Conc 28.3 GM/DL (32-36); Mean Corpuscular Hemoglobin 22 PG (27-34); Mean Corpuscular Volume 76.2 FL (87-102); Monocytes # 1.1 10*3/uL (0.11-0.8); Monocytes % 11.9 % (1.7-12.7); NRBC # 0.03 10*3/uL; Neutrophils # 5.8 10*3/uL (1.4-7.4); Neutrophils % 63.9 % (38.7-73.9); Platelet Count 149 T/CUMM (130-400); Red Blood Count 4.63 MC/CUMM (3.8-5.5); Red Cell Distribution Width 22.4 % (9.3-17.3); White Blood Count 9.1 T/CUMM (4-12)
[2018-07-07 13:36] LABS: INR 1.2
[2018-07-07 13:39] LABS: Albumin 3.6 G/DL (3.4-5.0); Bilirubin,Total 1.4 MG/DL (0.2-1.0); Calcium 9.5 MG/DL (8.5-10.1); Osmolality,Calculated 301.7 MOS/KG (273-304); Potassium 5.3 MMOL/L (3.5-5.1); Total Protein 7.5 G/DL (6.4-8.3)
[2018-07-07 13:49] LABS: Hematocrit 35.2 VOL% (42.0-52.0)
[2018-07-07] MEDS ORDERED: MORPHINE 4 MG/1 ML VIAL IV PRN (14:19)
[2018-07-07] MEDS ORDERED: ACETAMINOPHEN 325 MG TABLET PO PRN (14:19)
[2018-07-07] MEDS ORDERED: ONDANSETRON 4 MG/2 ML VIAL IV PRN (14:19)
[2018-07-07] MEDS: ENOXAPARIN 30 MG/0.3 ML SYRINGE SUBCUT SCH (14:53)
[2018-07-07] MEDS: cefTRIAXone 1,000 MG in SYRINGE 1 EACH IV SCH (14:54)
[2018-07-07] MEDS ORDERED: INFLUENZA VIRUS VACCINE 0.5 ML SYRINGE IM ONE (16:14)
[2018-07-07] MEDS: FUROSEMIDE 40 MG/4 ML VIAL IV SCH (16:25)
[2018-07-07] MEDS: AZITHROMYCIN INJ 250 MG in SODIUM CHLORIDE 0.9% 250 ML IV SCH (16:29)
[2018-07-07] MEDS: DOCUSATE SODIUM 100 MG CAPSULE PO SCH (21:13)
[2018-07-08 05:54] LABS: Calcium 8.6 MG/DL (8.5-10.1); Osmolality,Calculated 300.7 MOS/KG (273-304); Potassium 3.8 MMOL/L (3.5-5.1); Risk Ratio 3.88; VLDL CHOLESTEROL 15.6 MG/DL
[2018-07-08] MEDS ORDERED: ALBUTEROL 2.5 MG/3 ML NEB RESP TX PRN (08:18)
[2018-07-08 09:18] LABS: Troponin I 0.192 NG/ML (0.00-0.045)
[2018-07-08] MEDS: MULTIVITAMIN (CENTRUM) TABLET PO SCH (09:24)
[2018-07-08] MEDS: METOPROLOL TARTRATE 25 MG TABLET PO SCH ×2 (09:24→20:47)
[2018-07-08] MEDS: FUROSEMIDE 40 MG/4 ML VIAL IV SCH ×2 (09:24→15:09)
[2018-07-08] MEDS: DOCUSATE SODIUM 100 MG CAPSULE PO SCH ×2 (09:24→20:47)
[2018-07-08] MEDS: PANTOPRAZOLE 40 MG TABLET PO SCH (09:24)
[2018-07-08 12:44] LABS: Troponin I 0.176 NG/ML (0.00-0.045)
[2018-07-08] MEDS: cefTRIAXone 1,000 MG in SYRINGE 1 EACH IV SCH (15:04)
[2018-07-08] MEDS: ENOXAPARIN 30 MG/0.3 ML SYRINGE SUBCUT SCH (15:04)
[2018-07-08 15:12] LABS: Troponin I 0.171 NG/ML (0.00-0.045)
[2018-07-08] MEDS: AZITHROMYCIN INJ 250 MG in SODIUM CHLORIDE 0.9% 250 ML IV SCH (15:12)
[2018-07-08 18:11] LABS: Troponin I 0.178 NG/ML (0.00-0.045)
[2018-07-08] MEDS: ASPIRIN EC 81 MG TABLET PO SCH (20:47)
[2018-07-08] MEDS: SIMVASTATIN 40 MG TABLET PO SCH (20:47)
[2018-07-09] MEDS: FUROSEMIDE 40 MG/4 ML VIAL IV SCH ×2 (09:35→17:49)
[2018-07-09] MEDS: MULTIVITAMIN (CENTRUM) TABLET PO SCH (09:38)
[2018-07-09] MEDS: METOPROLOL TARTRATE 25 MG TABLET PO SCH (09:38)
[2018-07-09] MEDS: DOCUSATE SODIUM 100 MG CAPSULE PO SCH ×2 (09:38→21:18)
[2018-07-09] MEDS: PANTOPRAZOLE 40 MG TABLET PO SCH (09:38)
[2018-07-09] MEDS: ISOSORBIDE MONONITRATE 30 MG TABLET PO SCH (13:49)
[2018-07-09] MEDS: ENOXAPARIN 30 MG/0.3 ML SYRINGE SUBCUT SCH (13:49)
[2018-07-09] MEDS: cefTRIAXone 1,000 MG in SYRINGE 1 EACH IV SCH (13:50)
[2018-07-09] MEDS: AZITHROMYCIN INJ 250 MG in SODIUM CHLORIDE 0.9% 250 ML IV SCH (17:51)
[2018-07-09] MEDS: ASPIRIN EC 81 MG TABLET PO SCH (21:02)
[2018-07-09] MEDS: SIMVASTATIN 40 MG TABLET PO SCH (21:02)
[2018-07-09] MEDS: METOPROLOL TARTRATE 50 MG TABLET PO SCH (21:02)
[2018-07-10 02:55] LABS: Basophils # 0.1 10*3/uL (0.0-0.2); Basophils % 0.6 % (0.0-0.8); Eosinophils # 0.3 10*3/uL (0.0-0.87); Eosinophils % 3.6 % (0.00-10.9); Hematocrit 31.8 VOL% (42.0-52.0); Hemoglobin 9.3 GM/DL (14.0-18.0); Immature Granulocytes % 0.2 %; Immature Granulocytes Absolute 0.02 #; Lymphocytes # 1.7 10*3/uL (1.4-4.0); Mean Corpuscular HGB Conc 29.2 GM/DL (32-36); Mean Corpuscular Hemoglobin 21 PG (27-34); Mean Corpuscular Volume 73.3 FL (87-102); Monocytes % 12.6 % (1.7-12.7); NRBC # 0.04 10*3/uL; Neutrophils # 5.1 10*3/uL (1.4-7.4); Red Blood Count 4.34 MC/CUMM (3.8-5.5); Red Cell Distribution Width 21.8 % (9.3-17.3); White Blood Count 8.2 T/CUMM (4-12)
[2018-07-10 02:59] LABS: Platelet Count 137 T/CUMM (130-400)
[2018-07-10 03:27] LABS: Giant Platelets Few; Ovalocytes 1+; Platelet Estimate Decreased
[2018-07-10 03:28] LABS: Anisocytosis 2+; Hypochromasia 2+; Macrocytosis 1+; Microcytosis 1+; Target Cells Few
[2018-07-10] MEDS: DOCUSATE SODIUM 100 MG CAPSULE PO SCH ×2 (08:38→20:59)
[2018-07-10] MEDS: FUROSEMIDE 40 MG/4 ML VIAL IV SCH ×2 (08:38→16:11)
[2018-07-10] MEDS: PANTOPRAZOLE 40 MG TABLET PO SCH (08:38)
[2018-07-10] MEDS: ISOSORBIDE MONONITRATE 30 MG TABLET PO SCH (08:38)
[2018-07-10] MEDS: MULTIVITAMIN (CENTRUM) TABLET PO SCH (08:38)
[2018-07-10] MEDS: METOPROLOL TARTRATE 50 MG TABLET PO SCH ×2 (08:38→20:57)
[2018-07-10 09:19] LABS: Osmolality,Calculated 296.1 MOS/KG (273-304); Potassium 3.1 MMOL/L (3.5-5.1)
[2018-07-10] MEDS: ALBUTEROL/IPRATROPIUM 3 ML NEB RESP TX SCH ×2 (13:48→19:12)
[2018-07-10] MEDS: ENOXAPARIN 30 MG/0.3 ML SYRINGE SUBCUT SCH (14:51)
[2018-07-10] MEDS: cefTRIAXone 1,000 MG in SYRINGE 1 EACH IV SCH (14:51)
[2018-07-10] MEDS: AZITHROMYCIN INJ 250 MG in SODIUM CHLORIDE 0.9% 250 ML IV SCH (16:13)
[2018-07-10] MEDS: SIMVASTATIN 40 MG TABLET PO SCH (20:57)
[2018-07-10] MEDS: POTASSIUM CHLORIDE 20 MEQ TABLET PO PRN ×2 (20:57→23:10)
[2018-07-10] MEDS: ASPIRIN EC 81 MG TABLET PO SCH (20:57)
[2018-07-11] MEDS: ALBUTEROL/IPRATROPIUM 3 ML NEB RESP TX SCH ×4 (00:26→19:28)
[2018-07-11] MEDS: POTASSIUM CHLORIDE 20 MEQ TABLET PO PRN (01:15)
[2018-07-11 04:41] LABS: Calcium 8.1 MG/DL (8.5-10.1); Osmolality,Calculated 299.8 MOS/KG (273-304); Potassium 3.8 MMOL/L (3.5-5.1)
[2018-07-11 04:43] LABS: Basophils % 0.3 % (0.0-0.8); Eosinophils # 0.2 10*3/uL (0.0-0.87); Eosinophils % 2.6 % (0.00-10.9); Hematocrit 36.3 VOL% (42.0-52.0); Hemoglobin 10.1 GM/DL (14.0-18.0); Immature Granulocytes % 0.3 %; Immature Granulocytes Absolute 0.03 #; Lymphocytes % 21.7 % (21.2-54.2); Mean Corpuscular HGB Conc 27.8 GM/DL (32-36); Mean Corpuscular Hemoglobin 21 PG (27-34); Mean Corpuscular Volume 73.9 FL (87-102); Monocytes # 1.3 10*3/uL (0.11-0.8); Monocytes % 13.9 % (1.7-12.7); NRBC # 0.02 10*3/uL; Neutrophils # 5.6 10*3/uL (1.4-7.4); Neutrophils % 61.2 % (38.7-73.9); Platelet Count 150 T/CUMM (130-400); Red Blood Count 4.91 MC/CUMM (3.8-5.5); Red Cell Distribution Width 22.4 % (9.3-17.3); White Blood Count 9.1 T/CUMM (4-12)
[2018-07-11 06:22] LABS: Elliptocytes Few; Polychromasia Few
[2018-07-11 06:23] LABS: Platelet Estimate Adequate; Target Cells Few
[2018-07-11] MEDS: MULTIVITAMIN (CENTRUM) TABLET PO SCH (09:55)
[2018-07-11] MEDS: ISOSORBIDE MONONITRATE 30 MG TABLET PO SCH (09:55)
[2018-07-11] MEDS: PANTOPRAZOLE 40 MG TABLET PO SCH (09:55)
[2018-07-11] MEDS: DOCUSATE SODIUM 100 MG CAPSULE PO SCH ×2 (09:56→21:28)
[2018-07-11] MEDS: FUROSEMIDE 40 MG/4 ML VIAL IV SCH ×2 (09:56→15:09)
[2018-07-11] MEDS: METOPROLOL TARTRATE 50 MG TABLET PO SCH ×2 (09:56→21:26)
[2018-07-11] MEDS ORDERED: PROPOFOL 200 MG/20 ML VIAL IV ONE (10:44)
[2018-07-11] MEDS ORDERED: MIDAZOLAM 2 MG/2 ML VIAL ONE (10:44)
[2018-07-11] MEDS ORDERED: KETAMINE 500 MG/10 ML VIAL ONE (10:45)
[2018-07-11] MEDS ORDERED: GLYCOPYRROLATE 0.4 MG/2 ML VIAL ONE (10:45)
[2018-07-11] MEDS: DIGOXIN 0.25 MG TABLET PO SCH ×2 (15:01→21:26)
[2018-07-11] MEDS: cefTRIAXone 1,000 MG in SYRINGE 1 EACH IV SCH (15:01)
[2018-07-11] MEDS: ENOXAPARIN 30 MG/0.3 ML SYRINGE SUBCUT SCH (15:01)
[2018-07-11] MEDS: AZITHROMYCIN INJ 250 MG in SODIUM CHLORIDE 0.9% 250 ML IV SCH (16:49)
[2018-07-11] MEDS: ASPIRIN EC 81 MG TABLET PO SCH (21:26)
[2018-07-11] MEDS: SIMVASTATIN 40 MG TABLET PO SCH (21:26)
[2018-07-12] MEDS: ALBUTEROL/IPRATROPIUM 3 ML NEB RESP TX SCH ×4 (00:15→19:32)
[2018-07-12 05:06] LABS: Calcium 7.8 MG/DL (8.5-10.1); Osmolality,Calculated 294.1 MOS/KG (273-304); Potassium 3.4 MMOL/L (3.5-5.1)
[2018-07-12 05:35] LABS: Basophils % 0.4 % (0.0-0.8); Eosinophils # 0.4 10*3/uL (0.0-0.87); Eosinophils % 4.7 % (0.00-10.9); Hematocrit 33.3 VOL% (42.0-52.0); Immature Granulocytes % 0.4 %; Immature Granulocytes Absolute 0.03 #; Lymphocytes % 23.6 % (21.2-54.2); Mean Corpuscular HGB Conc 28.8 GM/DL (32-36); Mean Corpuscular Hemoglobin 21 PG (27-34); Mean Corpuscular Volume 73.8 FL (87-102); Monocytes # 1.1 10*3/uL (0.11-0.8); Monocytes % 13.2 % (1.7-12.7); Neutrophils % 57.7 % (38.7-73.9); Platelet Count 121 T/CUMM (130-400); Red Blood Count 4.51 MC/CUMM (3.8-5.5); Red Cell Distribution Width 22.2 % (9.3-17.3); White Blood Count 8.6 T/CUMM (4-12)
[2018-07-12 05:40] LABS: Hemoglobin 9.6 GM/DL (14.0-18.0)
[2018-07-12] MEDS: POTASSIUM CHLORIDE 20 MEQ TABLET PO PRN (06:27)
[2018-07-12] MEDS ORDERED: POTASSIUM CHLORIDE 20 MEQ TABLET PO ONE (07:49)
[2018-07-12] MEDS: POTASSIUM CHLORIDE RIDER 10 MEQ in PREMIX 1 EACH IV SCH ×2 (08:01→09:13)
[2018-07-12] MEDS: MULTIVITAMIN (CENTRUM) TABLET PO SCH (08:28)
[2018-07-12] MEDS: PANTOPRAZOLE 40 MG TABLET PO SCH (08:28)
[2018-07-12] MEDS: DOCUSATE SODIUM 100 MG CAPSULE PO SCH ×2 (08:28→21:32)
[2018-07-12] MEDS: ISOSORBIDE MONONITRATE 30 MG TABLET PO SCH (09:11)
[2018-07-12] MEDS: FUROSEMIDE 40 MG/4 ML VIAL IV SCH ×2 (09:11→16:00)
[2018-07-12] MEDS: METOPROLOL TARTRATE 50 MG TABLET PO SCH ×2 (09:12→21:32)
[2018-07-12] MEDS ORDERED: ZINC OXIDE PASTE 113 GM TUBE TOP PRN (10:05)
[2018-07-12] MEDS: DIGOXIN 0.125 MG TABLET PO SCH (12:55)
[2018-07-12] MEDS: ENOXAPARIN 30 MG/0.3 ML SYRINGE SUBCUT SCH (14:07)
[2018-07-12] MEDS: cefTRIAXone 1,000 MG in SYRINGE 1 EACH IV SCH (14:08)
[2018-07-12] MEDS: AZITHROMYCIN INJ 250 MG in SODIUM CHLORIDE 0.9% 250 ML IV SCH (16:18)
[2018-07-12] MEDS: ASPIRIN EC 81 MG TABLET PO SCH (21:32)
[2018-07-12] MEDS: SIMVASTATIN 40 MG TABLET PO SCH (21:33)
[2018-07-13] MEDS: ALBUTEROL/IPRATROPIUM 3 ML NEB RESP TX SCH ×4 (00:24→19:03)
[2018-07-13 02:18] LABS: Albumin 3.1 G/DL (3.4-5.0); Bilirubin,Total 0.9 MG/DL (0.2-1.0); Calcium 7.4 MG/DL (8.5-10.1); Potassium 4.3 MMOL/L (3.5-5.1); Total Protein 6.8 G/DL (6.4-8.3)
[2018-07-13 02:24] LABS: Basophils % 0.2 % (0.0-0.8); Eosinophils # 0.5 10*3/uL (0.0-0.87); Eosinophils % 5.8 % (0.00-10.9); Hematocrit 32.7 VOL% (42.0-52.0); Hemoglobin 9.1 GM/DL (14.0-18.0); Immature Granulocytes % 0.2 %; Immature Granulocytes Absolute 0.02 #; Lymphocytes # 2.2 10*3/uL (1.4-4.0); Lymphocytes % 25.9 % (21.2-54.2); Mean Corpuscular HGB Conc 27.8 GM/DL (32-36); Mean Corpuscular Hemoglobin 21 PG (27-34); Mean Corpuscular Volume 75.7 FL (87-102); Monocytes # 1.1 10*3/uL (0.11-0.8); Monocytes % 12.3 % (1.7-12.7); NRBC # 0.02 10*3/uL; Neutrophils # 4.7 10*3/uL (1.4-7.4); Neutrophils % 55.6 % (38.7-73.9); Platelet Count 138 T/CUMM (130-400); Red Blood Count 4.32 MC/CUMM (3.8-5.5); White Blood Count 8.5 T/CUMM (4-12)
[2018-07-13 02:33] LABS: Platelet Estimate Adequate; Polychromasia Few
[2018-07-13 02:34] LABS: Anisocytosis 1+; Elliptocytes 1+; Hypochromasia 1+; Microcytosis 1+; Schistocytes Few
[2018-07-13 02:35] LABS: Poikilocytosis Few
[2018-07-13] MEDS: MULTIVITAMIN (CENTRUM) TABLET PO SCH (09:23)
[2018-07-13] MEDS: PANTOPRAZOLE 40 MG TABLET PO SCH (09:23)
[2018-07-13] MEDS: DOCUSATE SODIUM 100 MG CAPSULE PO SCH ×2 (10:32→21:08)
[2018-07-13] MEDS: ISOSORBIDE MONONITRATE 30 MG TABLET PO SCH (10:33)
[2018-07-13] MEDS: METOPROLOL TARTRATE 50 MG TABLET PO SCH ×2 (10:33→21:08)
[2018-07-13] MEDS: FUROSEMIDE 40 MG/4 ML VIAL IV SCH (10:34)
[2018-07-13] MEDS: cefTRIAXone 1,000 MG in SYRINGE 1 EACH IV SCH (13:29)
[2018-07-13] MEDS: ENOXAPARIN 30 MG/0.3 ML SYRINGE SUBCUT SCH (13:31)
[2018-07-13] MEDS: DIGOXIN 0.125 MG TABLET PO SCH (13:31)
[2018-07-13] MEDS: AZITHROMYCIN INJ 250 MG in SODIUM CHLORIDE 0.9% 250 ML IV SCH (15:49)
[2018-07-13] MEDS: FUROSEMIDE 40 MG TABLET PO SCH (16:49)
[2018-07-13] MEDS: SIMVASTATIN 40 MG TABLET PO SCH (21:08)
[2018-07-13] MEDS: ASPIRIN EC 81 MG TABLET PO SCH (21:08)
[2018-07-14] MEDS: ALBUTEROL/IPRATROPIUM 3 ML NEB RESP TX SCH ×4 (00:51→19:32)
[2018-07-14 07:02] LABS: Calcium 7.6 MG/DL (8.5-10.1); Potassium 3.4 MMOL/L (3.5-5.1)
[2018-07-14 07:27] LABS: Basophils % 0.5 % (0.0-0.8); Eosinophils # 0.5 10*3/uL (0.0-0.87); Eosinophils % 6.3 % (0.00-10.9); Hematocrit 32.9 VOL% (42.0-52.0); Hemoglobin 9.4 GM/DL (14.0-18.0); Immature Granulocytes % 0.8 %; Immature Granulocytes Absolute 0.07 #; Lymphocytes # 2.2 10*3/uL (1.4-4.0); Lymphocytes % 26.4 % (21.2-54.2); Mean Corpuscular HGB Conc 28.6 GM/DL (32-36); Mean Corpuscular Hemoglobin 22 PG (27-34); Monocytes % 12.3 % (1.7-12.7); NRBC # 0.02 10*3/uL; Neutrophils # 4.5 10*3/uL (1.4-7.4); Neutrophils % 53.7 % (38.7-73.9); Platelet Count 129 T/CUMM (130-400); Red Blood Count 4.33 MC/CUMM (3.8-5.5); Red Cell Distribution Width 22.2 % (9.3-17.3); White Blood Count 8.4 T/CUMM (4-12)
[2018-07-14 08:03] LABS: Platelet Estimate Adequate
[2018-07-14 08:05] LABS: Poikilocytosis 1+; Target Cells Few
[2018-07-14] MEDS ORDERED: POTASSIUM CHLORIDE 20 MEQ TABLET PO ONE (08:05)
[2018-07-14 08:06] LABS: Anisocytosis 2+; Hypochromasia Slight
[2018-07-14] MEDS: METOPROLOL TARTRATE 50 MG TABLET PO SCH ×2 (08:27→21:23)
[2018-07-14] MEDS: FUROSEMIDE 40 MG TABLET PO SCH (08:27)
[2018-07-14] MEDS: PANTOPRAZOLE 40 MG TABLET PO SCH (08:27)
[2018-07-14] MEDS: MULTIVITAMIN (CENTRUM) TABLET PO SCH (08:27)
[2018-07-14] MEDS: ISOSORBIDE MONONITRATE 30 MG TABLET PO SCH (08:27)
[2018-07-14] MEDS: DOCUSATE SODIUM 100 MG CAPSULE PO SCH ×2 (08:27→21:23)
[2018-07-14] MEDS: ENOXAPARIN 30 MG/0.3 ML SYRINGE SUBCUT SCH (14:18)
[2018-07-14] MEDS: DIGOXIN 0.125 MG TABLET PO SCH (14:18)
[2018-07-14] MEDS: cefTRIAXone 1,000 MG in SYRINGE 1 EACH IV SCH (14:18)
[2018-07-14] MEDS: AZITHROMYCIN INJ 250 MG in SODIUM CHLORIDE 0.9% 250 ML IV SCH (16:00)
[2018-07-14] MEDS: ASPIRIN EC 81 MG TABLET PO SCH (21:23)
[2018-07-14] MEDS: SIMVASTATIN 40 MG TABLET PO SCH (21:23)
[2018-07-15] MEDS: ALBUTEROL/IPRATROPIUM 3 ML NEB RESP TX SCH ×3 (01:41→13:19)
[2018-07-15 05:55] LABS: Calcium 7.5 MG/DL (8.5-10.1); Potassium 3.9 MMOL/L (3.5-5.1)
[2018-07-15 08:26] LABS: Apearance,Urine CLEAR (Clear); Bacteria,Urine Occasional /HPF (Few); Bilirubin,Urine Negative (Negative); Blood, Urine Negative (Negative); Glucose,Urine (UA) Negative (Negative); Ketones,Urine Negative (Negative); Mucus,Urine Occasional /LPF (Occasional); Nitrite,Urine Negative (Negative); Protein,Urine Negative; RBC,Urine 1 /HPF (0-4); Squamous Epithelial Cell,Urine Occasional /HPF (0-10); Urine Color Yellow (Yellow); Urine Specific Gravity 1.013 (1.001-1.035); Urine Urobilinogen < 2.0 EU/DL (0.2-1.0); WBC,Urine 2 /HPF (0-6)
[2018-07-15] MEDS: DOCUSATE SODIUM 100 MG CAPSULE PO SCH (08:34)
[2018-07-15] MEDS: ISOSORBIDE MONONITRATE 30 MG TABLET PO SCH (08:34)
[2018-07-15] MEDS: MULTIVITAMIN (CENTRUM) TABLET PO SCH (08:34)
[2018-07-15] MEDS: METOPROLOL TARTRATE 50 MG TABLET PO SCH (08:34)
[2018-07-15] MEDS: PANTOPRAZOLE 40 MG TABLET PO SCH (08:34)
[2018-07-15] MEDS ORDERED: FUROSEMIDE 40 MG TABLET PO SCH (09:00)
[2018-07-15] MEDS: DIGOXIN 0.125 MG TABLET PO SCH (13:35)
[2018-07-15] MEDS: ENOXAPARIN 30 MG/0.3 ML SYRINGE SUBCUT SCH (15:30)
[2018-07-15] MEDS: cefTRIAXone 1,000 MG in SYRINGE 1 EACH IV SCH (15:30)
[2018-07-15 16:22] VITALS: BP 116/41
[2018-07-15] MEDS: AZITHROMYCIN INJ 250 MG in SODIUM CHLORIDE 0.9% 250 ML IV SCH (16:45)
== END 2018-07-15 17:29 | disposition home health service (06) | DRG 291 ==
LOC: N.ED 11:16 → N.EDINP 14:19 → N.TELEN 14:44
PROVIDERS: ADMIT Family Medicine; ATTEND Family Medicine

== ENCOUNTER 2018-10-18 15:09 | Inpatient (IN) ==
[2018-10-18] MEDS ORDERED: ALBUTEROL 2.5 MG/3 ML NEB RESP TX STA (16:08)
[2018-10-18 17:07] LABS: Albumin 3.8 G/DL (3.4-5.0); Bilirubin,Total 0.9 MG/DL (0.2-1.0); Calcium 8.7 MG/DL (8.5-10.1); Osmolality,Calculated 294.7 MOS/KG (273-304); Potassium 5.4 MMOL/L (3.5-5.1); Total Protein 8.1 G/DL (6.4-8.3)
[2018-10-18 17:12] LABS: Basophils % 0.1 % (0.0-0.8); Eosinophils % 0.1 % (0.00-10.9); Hematocrit 32.6 VOL% (42.0-52.0); Immature Granulocytes % 0.8 %; Immature Granulocytes Absolute 0.08 #; Lymphocytes # 1.9 10*3/uL (1.4-4.0); Lymphocytes % 19.1 % (21.2-54.2); Mean Corpuscular HGB Conc 29.1 GM/DL (32-36); Mean Corpuscular Hemoglobin 28 PG (27-34); Mean Corpuscular Volume 94.2 FL (87-102); Mean Platelet Volume 12.8 FL (9.6-12.0); Monocytes # 0.7 10*3/uL (0.11-0.8); Monocytes % 6.5 % (1.7-12.7); NRBC # 0.02 10*3/uL; Neutrophils # 7.4 10*3/uL (1.4-7.4); Neutrophils % 73.4 % (38.7-73.9); Platelet Count 141 T/CUMM (130-400); Red Blood Count 3.46 MC/CUMM (3.8-5.5); Red Cell Distribution Width 21.2 % (9.3-17.3); White Blood Count 10.1 T/CUMM (4-12)
[2018-10-18 17:13] LABS: Hemoglobin 9.5 GM/DL (14.0-18.0)
[2018-10-18] MEDS ORDERED: SODIUM CHLORIDE 0.9% 1,000 ML IV STA (17:31)
[2018-10-18] MEDS ORDERED: PIPERACILLIN/TAZOBACTAM 3,375 MG in SODIUM CHLORIDE 0.9% 100 ML IV STA (17:31)
[2018-10-18] MEDS ORDERED: SODIUM CHLORIDE 0.9% 500 ML IV STA (17:31)
[2018-10-18 17:36] LABS: Eosinophils 1 % (0-10); Hypochromasia Slight; Lymphocytes 11 % (20-55); Ovalocytes Few; Platelet Estimate Normal; Polychromasia Slight; Segmented Neutrophils 82 % (50-85); Total Cells Counted 100
[2018-10-18 17:37] LABS: Macrocytosis Slight
[2018-10-18] MEDS ORDERED: ONDANSETRON 4 MG/2 ML VIAL IV PRN (20:23)
[2018-10-18] MEDS ORDERED: ACETAMINOPHEN 325 MG TABLET PO PRN (20:23)
[2018-10-18] MEDS ORDERED: SIMVASTATIN 20 MG TABLET PO SCH (21:00)
[2018-10-18 22:15] LABS: CKMB % 5.5 %
[2018-10-18 22:18] LABS: Troponin I 0.813 NG/ML (0.00-0.045)
[2018-10-18] MEDS: SODIUM CHLORIDE 0.9% 1,000 ML IV SCH (22:46)
[2018-10-18] MEDS: ASPIRIN EC 81 MG TABLET PO SCH (22:47)
[2018-10-18] MEDS: DOCUSATE SODIUM 100 MG CAPSULE PO SCH (22:48)
[2018-10-18] MEDS: HEPARIN 5,000 UNIT/1 ML VIAL SUBCUT SCH (22:48)
[2018-10-18] MEDS: DOXYCYCLINE HYCLATE INJ 100 MG in SODIUM CHLORIDE 0.9% 100 ML IV SCH (22:49)
[2018-10-18] MEDS: cefTRIAXone 1,000 MG in SYRINGE 1 EACH IV SCH (22:49)
[2018-10-19 05:03] LABS: Basophils % 0.1 % (0.0-0.8); Hematocrit 29.9 VOL% (42.0-52.0); Immature Granulocytes % 0.9 %; Immature Granulocytes Absolute 0.18 #; Lymphocytes # 0.9 10*3/uL (1.4-4.0); Lymphocytes % 4.7 % (21.2-54.2); Mean Corpuscular HGB Conc 28.4 GM/DL (32-36); Mean Corpuscular Hemoglobin 27 PG (27-34); Mean Corpuscular Volume 95.2 FL (87-102); Mean Platelet Volume 12.5 FL (9.6-12.0); Monocytes # 2.1 10*3/uL (0.11-0.8); Monocytes % 10.4 % (1.7-12.7); NRBC # 0.04 10*3/uL; Neutrophils # 16.7 10*3/uL (1.4-7.4); Neutrophils % 83.9 % (38.7-73.9); Platelet Count 120 T/CUMM (130-400); Red Blood Count 3.14 MC/CUMM (3.8-5.5); Red Cell Distribution Width 20.9 % (9.3-17.3); White Blood Count 19.9 T/CUMM (4-12)
[2018-10-19 05:04] LABS: Hemoglobin 8.5 GM/DL (14.0-18.0)
[2018-10-19 05:26] LABS: Acanthocytes Few; Burr Cells Few; Lymphocytes 3 % (20-55); Microcytosis 1+; Segmented Neutrophils 87 % (50-85); Total Cells Counted 100
[2018-10-19 05:27] LABS: Anisocytosis 1+; Hypochromasia 1+; Ovalocytes Few; Platelet Estimate Decreased; Target Cells Slight
[2018-10-19] MEDS: HEPARIN 5,000 UNIT/1 ML VIAL SUBCUT SCH ×3 (05:29→21:05)
[2018-10-19] MEDS: PIPERACILLIN/TAZOBACTAM 3,375 MG in SODIUM CHLORIDE 0.9% 100 ML IV SCH ×2 (05:30→19:03)
[2018-10-19 07:01] LABS: Apearance,Urine CLOUDY (Clear); Bilirubin,Urine Negative (Negative); Blood, Urine Negative (Negative); Glucose,Urine (UA) Negative (Negative); Hyaline Casts,Urine 8 /LPF (0-3); Ketones,Urine Negative (Negative); Mucus,Urine Occasional /LPF (Occasional); Nitrite,Urine Negative (Negative); Protein,Urine Negative; Squamous Epithelial Cell,Urine Occasional /HPF (0-10); Urine Color Yellow (Yellow); Urine Specific Gravity 1.014 (1.001-1.035); Urine Urobilinogen < 2.0 EU/DL (0.2-1.0); WBC,Urine 2 /HPF (0-6)
[2018-10-19] MEDS: ALBUTEROL/IPRATROPIUM 3 ML NEB RESP TX SCH (07:13)
[2018-10-19 07:55] LABS: CKMB % 2.8 %
[2018-10-19 08:00] LABS: Troponin I 6.62 NG/ML (0.00-0.045)
[2018-10-19 08:12] LABS: Albumin 3.1 G/DL (3.4-5.0); Bilirubin,Total 1.1 MG/DL (0.2-1.0); Calcium 7.5 MG/DL (8.5-10.1); Osmolality,Calculated 300.4 MOS/KG (273-304); Total Protein 6.9 G/DL (6.4-8.3)
[2018-10-19] MEDS ORDERED: SODIUM BICARB INJ 100 MEQ in SODIUM CHLORIDE 0.9% 1,000 ML IV SCH (08:30)
[2018-10-19] MEDS ORDERED: DEXTROSE 50% 25 GM/50 ML SYRINGE IV ONE (08:32)
[2018-10-19] MEDS: SODIUM CHLORIDE 0.9% 1,000 ML IV SCH (08:57)
[2018-10-19] MEDS ORDERED: PANTOPRAZOLE 40 MG TABLET PO SCH (09:00)
[2018-10-19] MEDS: DEXTROSE 50% 25 GM/50 ML SYRINGE IV PRN ×2 (09:05→23:51)
[2018-10-19] MEDS: DOCUSATE SODIUM 100 MG CAPSULE PO SCH ×2 (09:08→20:59)
[2018-10-19] MEDS ORDERED: ALBUTEROL 2.5 MG/3 ML NEB RESP TX PRN (09:09)
[2018-10-19] MEDS: DOXYCYCLINE HYCLATE INJ 100 MG in SODIUM CHLORIDE 0.9% 100 ML IV SCH ×2 (09:13→21:05)
[2018-10-19] MEDS ORDERED: SODIUM BICARB INJ 100 MEQ in DEXTROSE 5% NACL 0.45% 1,000 ML IV SCH (09:30)
[2018-10-19 09:47] LABS: Calcium 7.2 MG/DL (8.5-10.1); Osmolality,Calculated 303.5 MOS/KG (273-304)
[2018-10-19] MEDS ORDERED: PHENYLEPHRINE DRIP 40 MG/250 ML PREMIX IV ONE (10:09)
[2018-10-19] MEDS: PHENYLEPHRINE DRIP 40 MG/250 ML PREMIX IV PRN (10:15)
[2018-10-19] MEDS ORDERED: LIDOCAINE 2% TOP JELLY 20 ML VIAL INTRAURETH ONE (11:07)
[2018-10-19] MEDS ORDERED: DIGOXIN 0.125 MG TABLET PO SCH (13:00)
[2018-10-19] MEDS: SODIUM BICARB INJ 150 MEQ in DEXTROSE 5% 850 ML IV SCH ×2 (13:31→20:30)
[2018-10-19] MEDS: MORPHINE 4 MG/1 ML VIAL IV PRN ×2 (14:45→19:04)
[2018-10-19] MEDS ORDERED: HEPARIN/NACL 0.9% 2 UNITS/ML 500 ML IV ONE (17:04)
[2018-10-19] MEDS ORDERED: HEPARIN/NACL 0.9% 2 UNITS/ML 500 ML IV SCH (17:30)
[2018-10-19] MEDS: PANTOPRAZOLE 40 MG VIAL IV SCH (18:59)
[2018-10-19] MEDS: cefTRIAXone 1,000 MG in SYRINGE 1 EACH IV SCH (20:27)
[2018-10-19] MEDS: ASPIRIN EC 81 MG TABLET PO SCH (20:59)
[2018-10-20] MEDS: PHENYLEPHRINE DRIP 40 MG/250 ML PREMIX IV PRN ×3 (00:42→12:24)
[2018-10-20 00:44] LABS: ABG Base Excess -14.9 MMOL/L (-2.5-2.5); ABG HCO3 12.8 MMOL/L (20-26); ABG PCO2 33.8 MM HG (35-48); ABG TCO2 12.1 MMOL/L (23-27)
[2018-10-20 00:47] LABS: ABG PH 7.176 (7.35-7.45)
[2018-10-20] MEDS ORDERED: SODIUM BICARBONATE 50 MEQ/50 ML SYRINGE IV ONE (00:48)
[2018-10-20] MEDS ORDERED: ETOMIDATE 20 MG/10 ML VIAL IV ONE ×2 (00:52→00:53)
[2018-10-20] MEDS ORDERED: VECURONIUM 10 MG VIAL IV ONE (00:52)
[2018-10-20 01:01] LABS: Basophils % 0.1 % (0.0-0.8); Immature Granulocytes % 0.9 %; Immature Granulocytes Absolute 0.23 #; Lymphocytes # 1.6 10*3/uL (1.4-4.0); Lymphocytes % 6.1 % (21.2-54.2); Mean Corpuscular Hemoglobin 27 PG (27-34); Mean Corpuscular Volume 96.5 FL (87-102); Mean Platelet Volume 13.6 FL (9.6-12.0); Monocytes # 1.8 10*3/uL (0.11-0.8); Monocytes % 7.2 % (1.7-12.7); NRBC # 0.33 10*3/uL; Neutrophils # 21.8 10*3/uL (1.4-7.4); Neutrophils % 85.7 % (38.7-73.9); Platelet Count 94 T/CUMM (130-400); Red Blood Count 2.59 MC/CUMM (3.8-5.5); Red Cell Distribution Width 20.9 % (9.3-17.3); White Blood Count 25.4 T/CUMM (4-12)
[2018-10-20 01:26] LABS: Albumin 2.4 G/DL (3.4-5.0); Bilirubin,Direct 0.49 MG/DL (0.0-0.20); Bilirubin,Indirect 0.6 MG/DL (0.0-1.0); Bilirubin,Total 1.1 MG/DL (0.2-1.0); Calcium 6.2 MG/DL (8.5-10.1); Osmolality,Calculated 312.3 MOS/KG (273-304); Total Protein 5.1 G/DL (6.4-8.3)
[2018-10-20 01:27] LABS: Potassium 6.2 MMOL/L (3.5-5.1)
[2018-10-20 01:56] LABS: ABG Base Excess -11.3 MMOL/L (-2.5-2.5); ABG HCO3 15.4 MMOL/L (20-26); ABG PCO2 28.8 MM HG (35-48); ABG PH 7.301 (7.35-7.45); ABG TCO2 13.5 MMOL/L (23-27)
[2018-10-20] MEDS ORDERED: PROPOFOL 1,000 MG/100 ML BOTTLE IV ONE (02:33)
[2018-10-20] MEDS: PROPOFOL 1,000 MG/100 ML BOTTLE IV SCH ×2 (03:00→11:13)
[2018-10-20 03:06] LABS: Band Neutrophils 4 % (0-10); Lymphocytes 8 % (20-55); Nucleated Red Blood Cells 6 (0-5); Segmented Neutrophils 80 % (50-85); Total Cells Counted 100
[2018-10-20 03:07] LABS: Platelet Estimate Decreased
[2018-10-20] MEDS: SODIUM BICARB INJ 150 MEQ in DEXTROSE 5% 850 ML IV SCH ×2 (04:02→11:11)
[2018-10-20 04:30] LABS: ABG Base Excess -9.3 MMOL/L (-2.5-2.5); ABG Oxygen Saturation 99.1 % (95-100); ABG PCO2 26.8 MM HG (35-48); ABG PH 7.366 (7.35-7.45); ABG PO2 332.8 MM HG (80-95); ABG TCO2 15.8 MMOL/L (23-27)
[2018-10-20] MEDS: LACTULOSE 20 GM/30 ML UDCUP PO SCH ×2 (04:31→13:31)
[2018-10-20] MEDS: HEPARIN 5,000 UNIT/1 ML VIAL SUBCUT SCH ×2 (04:33→13:32)
[2018-10-20 04:43] LABS: Hematocrit 23.9 VOL% (42.0-52.0); Immature Granulocytes % 0.8 %; Immature Granulocytes Absolute 0.17 #; Lymphocytes # 1.3 10*3/uL (1.4-4.0); Lymphocytes % 6.3 % (21.2-54.2); Mean Corpuscular HGB Conc 29.3 GM/DL (32-36); Mean Corpuscular Hemoglobin 27 PG (27-34); Mean Corpuscular Volume 93.4 FL (87-102); Mean Platelet Volume 13.9 FL (9.6-12.0); Monocytes # 1.1 10*3/uL (0.11-0.8); Monocytes % 5.4 % (1.7-12.7); NRBC # 0.49 10*3/uL; Neutrophils # 17.8 10*3/uL (1.4-7.4); Neutrophils % 87.5 % (38.7-73.9); Platelet Count 93 T/CUMM (130-400); Red Blood Count 2.56 MC/CUMM (3.8-5.5); Red Cell Distribution Width 21.1 % (9.3-17.3); White Blood Count 20.4 T/CUMM (4-12)
[2018-10-20 05:16] LABS: Albumin 2.3 G/DL (3.4-5.0); Bilirubin,Total 0.9 MG/DL (0.2-1.0); Osmolality,Calculated 310.1 MOS/KG (273-304); Potassium 5.5 MMOL/L (3.5-5.1)
[2018-10-20 05:30] LABS: Calcium 5.8 MG/DL (8.5-10.1)
[2018-10-20 05:49] LABS: Acanthocytes Few; Anisocytosis 1+; Hypochromasia 1+; Microcytosis 1+
[2018-10-20 05:50] LABS: Ovalocytes Few; Platelet Estimate Decreased; Target Cells Slight
[2018-10-20] MEDS: PIPERACILLIN/TAZOBACTAM 3,375 MG in SODIUM CHLORIDE 0.9% 100 ML IV SCH (07:33)
[2018-10-20] MEDS: ALBUTEROL/IPRATROPIUM 3 ML NEB RESP TX SCH (07:51)
[2018-10-20 07:58] VITALS: BP 106/23
[2018-10-20 08:25] LABS: Albumin 2.3 G/DL (3.4-5.0); Bilirubin,Direct 0.54 MG/DL (0.0-0.20); Bilirubin,Indirect 0.4 MG/DL (0.0-1.0); Bilirubin,Total 0.9 MG/DL (0.2-1.0)
[2018-10-20] MEDS ORDERED: CALCIUM (CITRATE) 200 MG TABLET PO SCH (09:00)
[2018-10-20] MEDS: DOXYCYCLINE HYCLATE INJ 100 MG in SODIUM CHLORIDE 0.9% 100 ML IV SCH (09:16)
[2018-10-20] MEDS: PANTOPRAZOLE 40 MG VIAL IV SCH (09:17)
[2018-10-20] MEDS: DOCUSATE SODIUM 100 MG CAPSULE PO SCH (09:17)
[2018-10-24] MEDS ORDERED: PNEUMOCOCCAL VACCINE (13 VALENT) 0.5 ML SYRINGE IM ONE (21:01)
[2018-10-24] MEDS ORDERED: INFLUENZA VIRUS VACCINE 0.5 ML SYRINGE IM ONE (21:01)
== END 2018-10-20 13:47 | disposition expired | DRG 871 ==
LOC: EDUNIT# → EDBD → N.ED 15:09 → N.EDINP 17:37 → N.ICU 19:36
PROVIDERS: ADMIT Family Medicine; ATTEND Family Medicine